=== PATIENT | female | born 1965 | race American Indian/Alaskan Native ===

== ENCOUNTER 2018-07-06 18:11 | Inpatient (IN) | payer MEDICARE, OTHER ==
--- NOTE | 2018-07-06 19:06 | ED PDOC ---
Arrival/HPI - General Time Seen by Provider: 07/06/18 19:01 Historian: Patient - History of Present Illness Narrative History of Present Illness (Text): 07/06/18 19:02 53 y/o female, pmh including dm/htn, psychiatric history of schizophrenia and taking haldol, post menopausal, nkda, c/o generalized shaking and LLE shaking for over 1 week. Pt. stated that she has over 1 week of the left lower extremity spasm, no difficulty walking or standing, has chronic tremors of the whole body for over years since the start of the the haldol which her pmd and psychiatrist awared of it but she doesn't like to take medication, no worsening or change in the severity/quality/quantity of the tremors, no fever or chills, no slurred speech, no numbness or tingling, no diarrhea, no rash, no other medical or [id number] complaints. Past Medical History - Provider Review Nursing Documentation Reviewed: Yes Family/Social History - Physician Review Nursing Documentation Reviewed: Yes Family/Social History: Unknown Family HX Allergies/Home Meds Allergies/Adverse Reactions: Allergies No Known Allergies Allergy (Verified 07/11/18 09:57) Home Medications: Home Meds Medication Instructions Recorded Confirmed Haloperidol [Haldol] 10 mg PO BID 07/07/18 07/07/18 Review of Systems - Review of Systems Constitutional: absent: Fatigue, Fevers Eyes: absent: Vision Changes ENT: absent: Hearing Changes Respiratory: absent: SOB, Cough Cardiovascular: absent: Chest Pain Gastrointestinal: absent: Abdominal Pain, Diarrhea, Nausea, Vomiting Musculoskeletal: Other (+spasm). absent: Arthralgias, Back Pain Skin: absent: Rash, Pruritis Neurological: Other (+tremors). absent: Headache, Dizziness, Focal Weakness, Gait Changes, Speech Changes, Facial Droop, Disequilibrium, Seizure Endocrine: absent: Diaphoresis Hemo/Lymphatic: absent: Adenopathy Psychiatric: absent: Anxiety, Depression, Suicidal Ideation Physical Exam Vital Signs Reviewed: Yes Temperature: Afebrile Blood Pressure: Normal Pulse: Regular Respiratory Rate: Normal Appearance: Positive for: Well-Appearing, Non-Toxic, Comfortable Pain Distress: None Mental Status: Positive for: Alert and Oriented X 3 - Systems Exam Head: Present: Atraumatic, Normocephalic Pupils: Present: PERRL Extroacular Muscles: Present: EOMI Conjunctiva: Present: Normal Mouth: Present: Moist Mucous Membranes Nose (External): Present: Atraumatic. No: Abrasion, Contusion, Laceration, Lesions, Other Nose (Internal): Present: Normal Inspection, No Active Bleeding. No: Rhinorrhea, Septal Deviation, Septal Hematoma, Epistaxis Neck: Present: Normal Range of Motion Respiratory/Chest: Present: Clear to Auscultation, Good Air Exchange. No: Respiratory Distress, Accessory Muscle Use Cardiovascular: Present: Regular Rate and Rhythm, Normal S1, S2. No: Murmurs Abdomen: No: Tenderness, Distention, Peritoneal Signs Back: Present: Normal Inspection Upper Extremity: Present: Normal Inspection. No: Cyanosis, Edema Lower Extremity: Present: Normal Inspection, NORMAL PULSES, Normal ROM, Neurovascularly Intact, Capillary Refill < 2 s, Other (Bilateral LE: no tendern ess or swelling, no spasm, no erythematous or cellulitis, FROM without limitation, sensation intact, motor 5/5, +DPPT pulses, walking with normal gait and posture, no saddling gait. ). No: Edema, CALF TENDERNESS, Lamar's Sign, Tenderness, Swelling, Deformity Neurological: Present: GCS=15, CN II-XII Intact, Speech Normal, Motor Func Grossly Intact, Normal Cerebellar Funct, Gait Normal, Memory Normal, Other (generalized tremor noted) Skin: Present: Warm, Dry, Normal Color. No: Rashes Psychiatric: Present: Alert, Oriented x 3, Normal Insight, Normal Concentration Medical Decision Making ED Course and Treatment: 07/06/18 19:11 Differential: Tardive dyskenia vs. dystonia vs. Extrapyrmaida symptoms vs. haldol side effect vs. electrolyte imbalance vs. DVT vs. unlikely neurolaptic malignant syndrome -Labs/CPK -DVT -IVF/benadryl -Observe and reassess 07/06/2018 21:19 -EKG: NSR @ 76 BPM, no ST elevation or depression, T wave inversion I/aVL/V2-V6. -LLE Venuous doppler: as per preliminary report, +DVT noted on the whole entire LLE. -CTA Chest ordered -Room air sat around 92%, CTA ordered -Labs are non significant except glucose 308 (DM, IVF ordered, no signs or symptoms of DKA) -Dimer 1332 -Troponin 0.09, no chest pain, likely PE induced, aspirin 325mg ordered -Pt. refused guaiac, stated that she has no nausea/vomiting/diarrhea/hematochezia, no rectal bleeding or black color stool. -IV heparin bolus and drip orderd for her DVT and possible PE -Pt.'s tremor resolved with the IV Benadryl 07/06/2018 21:20 Chest CTA IMPRESSION: 1. Extensive central and segmental right sided PE as described above noted. 2. The estimated RV/LV ratio equals 1.0. This indicates significant right ventricular strain. 3. Mild cardiomegaly. 4. Emphysema. 5. An 8.0 mm 9-obstructing calculus is seen in the upper left renal pole. Dictator: Hany Quiroz M.D. 07/06/18 21:39 -BNP: 1000, no signs of CHF, would need echocardiogram -Elevated BP and didn't take her medication, IV hydralazine 20mg ordered -I spoke to Dr. Urbina, discussed about the case/labs/radiology result, agreed Dr. Weems/Ward for routine consult which I ordered. -I spoke to Dr. Matamoros, ICU water pollution specialist, discussed about the case/labs/radiology result, agreed on the ICU admission due to the labs and ekg/CTA findings. 07/06/18 22:11 -Case discussed with Dr. Servin who spoke to Dr. Matamoros about this case, agreed on the ICU admission with heparin. Pt. is hemodynamically stable at this time. -Based on the literature of [email or web address] and PESI score (class I), there is no clear indication of the TPA systemically at this time and the patient is hemodynamically stable. 07/07/18 12:17 -UA show +UTI, macrobid ordered as follow up. - Critical Care Critical Care Minutes: 45 minutes Critical Care Time: Unstable Narrative Critical Care (Text): 07/06/18 21:42 Central PE with ischemia changes on the ekg with heart strain, LLE DVT, cardiac monitoring, ICU consult and admission. - RAD Interpretation Radiology Orders: -LLE Venuous doppler: as per preliminary report, +DVT noted on the whole entire LLE. -CTA Chest EXAM: CTA Chest with Intravenous Contrast for Pulmonary Embolism CLINICAL HISTORY: SOB DVT IN LOWER EXTREMITY CHEST PAIN TECHNIQUE: Axial CTA images of the chest with intravenous contrast using a pulmonary embolism protocol. Reconstructed images were created and reviewed. 516.00 mGy-cm CONTRAST: With; OMNI 350 100 ml was administered without incident. COMPARISON: None provided. FINDINGS: PULMONARY ARTERIES There is intraluminal hypodense filling defect seen in the distal main right pulmonary artery and directed with segmental branches compatible with central and segmental pulmonary embolism. The arterial branches that supply the posterior lateral and lower right lung are most affected. AORTA There is no evidence for aneurysm or dissection of the thoracic aorta. LUNGS No pneumonic consolidation seen. Scattered emphysematous centrilobular changes are seen. PLEURAL SPACES No evidence of pneumothorax. No pleural effusion. HEART There is mild cardiomegaly. No pericardial effusion. The estimated RV/LV ratio is 1.0. This indicates significant right ventricular strain. LYMPH NODES No lymphadenopathy is evident. BONES No focal osseous abnormality or acute fracture. UPPER ABDOMEN Images of the upper abdomen demonstrate an approximately 8.0 mm non-obstructing calculus in the upper left renal pole. IMPRESSION: 1. Extensive central and segmental right sided PE as described above noted. 2. The estimated RV/LV ratio equals 1.0. This indicates significant right ventricular strain. 3. Mild cardiomegaly. 4. Emphysema. 5. An 8.0 mm 9-obstructing calculus is seen in the upper left renal pole. Electronically signed on July 06, 2018 9:19:36 PM EDT by: Hany Quiroz M.D., M.B.A., Certified By [employer] Trained MRI and CT Specialist Bench Jeweler: Radiologist - PA / PLUSH BRUSHER / Resident Statement / has reviewed & agrees with the documentation as recorded. Disposition/Present on Arrival - Present on Arrival Any Indicators Present on Arrival: No History of DVT/PE: No History of Uncontrolled Diabetes: No Urinary Catheter: No History of Decub. Ulcer: No - Disposition Have Diagnosis and Disposition been Completed?: Yes Diagnosis: DVT (deep venous thrombosis), Extrapyramidal movement disorder, Pulmonary embolism, Elevated troponin Disposition: HOSPITALIZED Disposition Time: 19:12 Patient Plan: Admission, ICU Condition: GUARDED
[2018-07-06] MEDS ORDERED: Sodium Chloride 0.9% 1,000 ML IV STA (19:12)
[2018-07-06] MEDS ORDERED: DiphenhydrAMINE 50 mg/ml Inj IVP STA (19:12)
[2018-07-06] MEDS ORDERED: Heparin25000 units/250ml 1/2NS 25,000 UNITS/250 ML BAG IV PRN (20:06)
[2018-07-06 20:10] LABS: BASO # 0.03 K/mm3 (0.0-2.0); BASO % 0.3 % (0.0-3.0); EOS % 0.3 % (1.5-5.0); LYMPH # 1.4 (1.2-3.4); LYMPH % 12.8 % (22.0-35.0); MEAN CELL VOLUME 88.2 fl (80.0-105.0); MEAN CORPUSCULAR HEMOGLOBIN 29.4 pg (25.0-35.0); MEAN CORPUSCULAR HGB CONC 33.3 g/dl (31.0-37.0); MEAN PLATELET VOLUME 9.8 fl (7.0-11.0); MONO # 0.7 (0.1-0.6); MONO % 6.5 % (1.0-6.0); RBC 4.76 10^6/uL (3.5-6.1); RED CELL DISTRIBUTION WIDTH 12.8 % (11.5-14.5); WHITE BLOOD COUNT 10.7 10^3/uL (4.5-11.0)
[2018-07-06 20:20] VITALS: BMI 34.2
[2018-07-06 20:21] LABS: ALBUMIN 4.1 g/dL (3.0-4.8); ALT/SGPT 16 U/L (7-56); AST/SGOT 30 U/L (14-36); BLOOD UREA NITROGEN 15 mg/dL (7-21); CALCIUM 9.4 mg/dL (8.4-10.5); GFR NON-AFRICAN AMERICAN > 60
[2018-07-06] MEDS ORDERED: Iohexol 350 MG/100 ML VIAL ONE (20:30)
[2018-07-06 20:34] LABS: INR 1.28; PARTIAL THROMBOPLASTIN TIME 24.7 Seconds (26.9-38.3); PROTHROMBIN TIME 14.2 SECONDS (9.4-12.5)
[2018-07-06] MEDS: Heparin 25,000units in 1/2NS /250 ML BAG IV PRN (20:43)
--- NOTE | 2018-07-06 22:10 | CP.PCM.CON ---
<LamontFord Autumn - Last Filed: 07/07/18 05:26> History of Present Illness - History of Present Illness History of Present Illness: ICU Consult Note Ford Miguel PGY2 Chief Complaint: Muscle spasms in right leg HPI: Patient is a 53 F with a past medical history of hypertension and schizophrenia who presents with complaints of lower leg muscle spasms which bega n about 7 days prior. Patient states she also experienced shortness of breath for the past few weeks but said since it was only with exertion she didn't pay much attention to it. Patient denies palpitations, chest pain, nausea, vomiting, diarrhea, fevers, chills, family history of blood disorders, smoking, OCP uses since a teenager, recent long car/plane travels, smoking. She states she is physically active and is always walking around never sitting still. PMD: Does not have Psychiatrist: [place] [facility] [place] Allergies: denies Surgical hx: denies Past medical history: hypertension and schizophrenia however patient is very non compliant with her medications. [facility] in [place]. Family Hx: denies Social Hx: patient has a daughter who brought her into the hospital however lorelei loco lives alone and cares for herself. Patient does not work and is on disability. Review of Systems - Review of Systems All systems: reviewed and no additional remarkable complaints except (as mentiond in HPI) Past Patient History - Past Social History Smoking Status: Never Smoked - CARDIAC Hx Hypertension: Yes - ENDOCRINE/METABOLIC Hx Diabetes Mellitus Type 2: Yes - PSYCHIATRIC Hx Schizophrenia: Yes Hx Substance Use: No - SURGICAL HISTORY Hx Surgeries: No - ANESTHESIA Hx Anesthesia: No Hx Anesthesia Reactions: No Hx Malignant Hyperthermia: No Meds Allergies/Adverse Reactions: Allergies Allergy/AdvReac Type Severity Reaction Status Date / Time No Known Allergies Allergy Verified 07/06/18 18:56 - Medications Medications: Current Medications Heparin Sodium/Sodium Chloride (Heparin 40964 Units/250ml 1/2 Normal Saline) 25,000 units in 250 mls @ 17.309 mls/hr IV .[id number] PRN; Protocol PRN Reason: ADJUST RATE PER PROTOCOL Last Admin: 07/06/18 20:43 Dose: 17.309 mls/hr Physical Exam - Head Exam Head Exam: ATRAUMATIC, NORMAL INSPECTION, NORMOCEPHALIC - Eye Exam Eye Exam: EOMI, Normal appearance - ENT Exam ENT Exam: Mucous Membranes Moist - Respiratory Exam Respiratory Exam: Clear to Auscultation Bilateral, NORMAL BREATHING PATTERN. absent: Rhonchi, Wheezes - Cardiovascular Exam Cardiovascular Exam: REGULAR RHYTHM, +S1, +S2 - GI/Abdominal Exam GI & Abdominal Exam: Normal Bowel Sounds, Soft - Extremities Exam Extremities exam: Positive for: pedal edema (left lower leg), pedal pulses present. Negative for: calf tenderness, normal inspection - Back Exam Back exam: NORMAL INSPECTION - Neurological Exam Neurological exam: Alert, CN II-XII Intact, Oriented x3 - Psychiatric Exam Psychiatric exam: Normal Affect, Normal Mood - Skin Skin Exam: Normal Color, Warm Results - Vital Signs Recent Vital Signs: Last Vital Signs Temp 98.5 F 07/06/18 21:21 Pulse 83 07/06/18 21:50 Resp 22 07/06/18 21:21 BP 181/106 H 07/06/18 21:50 Pulse Ox 99 07/06/18 21:21 - Labs Result Diagrams: 07/06/18 19:30 07/06/18 19:30 Labs: Laboratory Results - last 24 hr 07/06/18 07/06/18 07/06/18 19:30 19:30 19:30 WBC 10.7 RBC 4.76 Hgb 14.0 Hct 42.0 MCV 88.2 MCH 29.4 MCHC 33.3 RDW 12.8 Plt Count 392 MPV 9.8 Neut % (Auto) 80.1 H Lymph % (Auto) 12.8 L [place] % (Auto) 6.5 H Eos % (Auto) 0.3 L Baso % (Auto) 0.3 Lymph # (Auto) 1.4 [place] # (Auto) 0.7 H Eos # (Auto) 0.0 Baso # (Auto) 0.03 Absolute Neuts (auto) 8.58 H PT INR APTT D-Dimer, Quantitative Sodium 139 Potassium 4.1 Chloride 101 Carbon Dioxide 25 Anion Gap 17 BUN 15 Creatinine 0.9 Est GFR ( Amer) > 60 Est GFR (Non-Af Amer) > 60 Random Glucose 308 H* Calcium 9.4 Magnesium 1.8 Total Bilirubin 0.9 AST 30 ALT 16 Alkaline Phosphatase 82 Total Creatine Kinase 81 Troponin I 0.09 NT-Pro-B Natriuret Pep Total Protein 8.2 Albumin 4.1 Globulin 4.0 Albumin/Globulin Ratio 1.0 L 07/06/18 07/06/18 19:30 20:11 WBC RBC Hgb Hct MCV MCH MCHC RDW Plt Count MPV Neut % (Auto) Lymph % (Auto) [place] % (Auto) Eos % (Auto) Baso % (Auto) Lymph # (Auto) [place] # (Auto) Eos # (Auto) Baso # (Auto) Absolute Neuts (auto) PT 14.2 H INR 1.28 APTT 24.7 L D-Dimer, Quantitative 1332 H Sodium Potassium Chloride Carbon Dioxide Anion Gap BUN Creatinine Est GFR ( Amer) Est GFR (Non-Af Amer) Random Glucose Calcium Magnesium Total Bilirubin AST ALT Alkaline Phosphatase Total Creatine Kinase Troponin I NT-Pro-B Natriuret Pep 1070 H Total Protein Albumin Globulin Albumin/Globulin Ratio Assessment & Plan - Assessment and Plan (Free Text) Assessment: 53 F with a history of hypertension and shizophrenia presenting with lower leg muscle cramping found to have a DVT and pulmonary embolism Plan: Neurologic/psych -AAO x3 -Verify medications with [facility]'s [facility] ([facility] [address]) and resume psych meds Cadiovascular -Lower Extremity DVT and Central Pulmonary embolism with RV strain -Maintain MAP >65 -Avoid hypotension -Continue with heparin drip and aspirin -Continue to trend troponins, first troponin 0.09 -Continue with serial EKGs -2D echo ordered -Lipid panel, TSH -Cardiology on Consult Hematological -Lower Extremity DVT and Central Pulmonary embolism with RV strain -Continue with Heparin drip -Consider Coagulopathy workup during hospital stay -PTT Pulmonary -Lower Extremity DVT and Central Pulmonary embolism with RV strain -Maintain O2 sat >95% -Continue with Heparin drip -IR consulted Endocrine -History of DM for which patient does not take medications -HgA1C ordered -Insulin SCC -continues with fingersticks qACHS -Maintain euglycemia and normothermia Renal -Maintain euvolemia -Replete electrolytes as needed <Shea Matamoros - Last Filed: 07/07/18 06:55> Meds - Medications Medications: Current Medications Aspirin (Ecotrin) 81 mg PO DAILY EMILIAAN Heparin Sodium/Sodium Chloride (Heparin 03897 Units/250ml 1/2 Normal Saline) 25,000 units in 250 mls @ 17.309 mls/hr IV .[id number] PRN; Protocol PRN Reason: ADJUST RATE PER PROTOCOL Last Titration: 07/07/18 03:00 Dose: 15 units/kg/hr, 14.424 mls/hr Insulin Human Regular (Humulin R Med) 0 units SC ACHS EMILIANA; Protocol Results - Vital Signs Recent Vital Signs: Last Vital Signs Temp 98.3 F 07/06/18 23:19 Pulse 79 07/07/18 04:00 Resp 16 07/06/18 23:23 BP 171/86 H 07/06/18 23:23 Pulse Ox 99 07/06/18 23:23 - Labs Result Diagrams: 07/07/18 05:00 07/07/18 05:00 Labs: Laboratory Results - last 24 hr 07/06/18 07/06/18 07/06/18 19:30 19:30 19:30 WBC 10.7 RBC 4.76 Hgb 14.0 Hct 42.0 MCV 88.2 MCH 29.4 MCHC 33.3 RDW 12.8 Plt Count 392 MPV 9.8 Neut % (Auto) 80.1 H Lymph % (Auto) 12.8 L [place] % (Auto) 6.5 H Eos % (Auto) 0.3 L Baso % (Auto) 0.3 Lymph # (Auto) 1.4 [place] # (Auto) 0.7 H Eos # (Auto) 0.0 Baso # (Auto) 0.03 Absolute Neuts (auto) 8.58 H PT INR APTT D-Dimer, Quantitative Sodium 139 Potassium 4.1 Chloride 101 Carbon Dioxide 25 Anion Gap 17 BUN 15 Creatinine 0.9 Est GFR ( Amer) > 60 Est GFR (Non-Af Amer) > 60 Random Glucose 308 H* Calcium 9.4 Phosphorus Magnesium 1.8 Total Bilirubin 0.9 AST 30 ALT 16 Alkaline Phosphatase 82 Total Creatine Kinase 81 Troponin I 0.09 NT-Pro-B Natriuret Pep Total Protein 8.2 Albumin 4.1 Globulin 4.0 Albumin/Globulin Ratio 1.0 L Triglycerides Cholesterol LDL Cholesterol Direct HDL Cholesterol Urine Color Urine Appearance Urine pH Ur Specific [place] Urine Protein Urine Glucose (UA) Urine Ketones Urine Blood Urine Nitrate Urine Bilirubin Urine Urobilinogen Ur Leukocyte Esterase Urine RBC Urine WBC Ur Epithelial Cells Urine Bacteria Urine Opiates Screen Urine Methadone Screen Ur Barbiturates Screen Ur Phencyclidine Scrn Ur Amphetamines Screen U Benzodiazepines Scrn U Oth Cocaine Metabols U Cannabinoids Screen 07/06/18 07/06/18 07/06/18 19:30 20:11 21:21 WBC RBC Hgb Hct MCV MCH MCHC RDW Plt Count MPV Neut % (Auto) Lymph % (Auto) [place] % (Auto) Eos % (Auto) Baso % (Auto) Lymph # (Auto) [place] # (Auto) Eos # (Auto) Baso # (Auto) Absolute Neuts (auto) PT 14.2 H INR 1.28 APTT 24.7 L D-Dimer, Quantitative 1332 H Sodium Potassium Chloride Carbon Dioxide Anion Gap BUN Creatinine Est GFR ( Amer) Est GFR (Non-Af Amer) Random Glucose Calcium Phosphorus Magnesium 1.9 Total Bilirubin AST ALT Alkaline Phosphatase Total Creatine Kinase Troponin I NT-Pro-B Natriuret Pep 1070 H Total Protein Albumin Globulin Albumin/Globulin Ratio Triglycerides Cholesterol LDL Cholesterol Direct HDL Cholesterol Urine Color Urine Appearance Urine pH Ur Specific [place] Urine Protein Urine Glucose (UA) Urine Ketones Urine Blood Urine Nitrate Urine Bilirubin Urine Urobilinogen Ur Leukocyte Esterase Urine RBC Urine WBC Ur Epithelial Cells Urine Bacteria Urine Opiates Screen Urine Methadone Screen Ur Barbiturates Screen Ur Phencyclidine Scrn Ur Amphetamines Screen U Benzodiazepines Scrn U Oth Cocaine Metabols U Cannabinoids Screen 07/07/18 07/07/18 07/07/18 00:10 00:10 02:00 WBC RBC Hgb Hct MCV MCH MCHC RDW Plt Count MPV Neut % (Auto) Lymph % (Auto) [place] % (Auto) Eos % (Auto) Baso % (Auto) Lymph # (Auto) [place] # (Auto) Eos # (Auto) Baso # (Auto) Absolute Neuts (auto) PT INR APTT D-Dimer, Quantitative Sodium Potassium Chloride Carbon Dioxide Anion Gap BUN Creatinine Est GFR ( Amer) Est GFR (Non-Af Amer) Random Glucose Calcium Phosphorus Magnesium Total Bilirubin AST ALT Alkaline Phosphatase Total Creatine Kinase Troponin I 0.12 D NT-Pro-B Natriuret Pep Total Protein Albumin Globulin Albumin/Globulin Ratio Triglycerides Cholesterol LDL Cholesterol Direct HDL Cholesterol Urine Color Yellow Urine Appearance Sl cloudy Urine pH 6.0 Ur Specific [place] <= 1.005 Urine Protein Negative Urine Glucose (UA) 250 H Urine Ketones Trace H Urine Blood Negative Urine Nitrate Positive H Urine Bilirubin Negative Urine Urobilinogen 1.0 H Ur Leukocyte Esterase Small H Urine RBC 0 - 2 Urine WBC 5 - 10 H Ur Epithelial Cells 4 - 5 Urine Bacteria Many Urine Opiates Screen Negative Urine Methadone Screen Negative Ur Barbiturates Screen Negative Ur Phencyclidine Scrn Negative Ur Amphetamines Screen Negative U Benzodiazepines Scrn Negative U Oth Cocaine Metabols Negative U Cannabinoids Screen Negative 07/07/18 07/07/18 07/07/18 02:00 05:00 05:00 WBC 7.6 D RBC 4.46 Hgb 12.9 Hct 39.8 MCV 89.2 MCH 28.9 MCHC 32.4 RDW 12.9 Plt Count 319 MPV 9.0 Neut % (Auto) 52.7 Lymph % (Auto) 36.8 H [place] % (Auto) 7.6 H Eos % (Auto) 2.4 Baso % (Auto) 0.5 Lymph # (Auto) 2.8 [place] # (Auto) 0.6 Eos # (Auto) 0.2 Baso # (Auto) 0.04 Absolute Neuts (auto) 4.02 PT INR APTT 193.7 H* D-Dimer, Quantitative Sodium 140 Potassium 3.4 L Chloride 106 Carbon Dioxide 27 Anion Gap 11 BUN 13 Creatinine 0.8 Est GFR ( Amer) > 60 Est GFR (Non-Af Amer) > 60 Random Glucose 296 H Calcium 8.6 Phosphorus 3.3 Magnesium Total Bilirubin 0.5 AST 17 ALT 15 Alkaline Phosphatase 75 Total Creatine Kinase Troponin I NT-Pro-B Natriuret Pep Total Protein 6.8 Albumin 3.5 Globulin 3.4 Albumin/Globulin Ratio 1.0 L Triglycerides 107 Cholesterol 162 LDL Cholesterol Direct 110 HDL Cholesterol 32 Urine Color Urine Appearance Urine pH Ur Specific [place] Urine Protein Urine Glucose (UA) Urine Ketones Urine Blood Urine Nitrate Urine Bilirubin Urine Urobilinogen Ur Leukocyte Esterase Urine RBC Urine WBC Ur Epithelial Cells Urine Bacteria Urine Opiates Screen Urine Methadone Screen Ur Barbiturates Screen Ur Phencyclidine Scrn Ur Amphetamines Screen U Benzodiazepines Scrn U Oth Cocaine Metabols U Cannabinoids Screen Attending/Attestation - Attestation I have personally seen and examined this patient.: Yes I have fully participated in the care of the patient.: Yes I have reviewed all pertinent clinical information: Yes Notes (Text): 07/07/18 06:55 Seen and examined. Discussed with resident. A&P as above.
[2018-07-07 00:37] LABS: URINE BILIRUBIN NEGATIVE (NEGATIVE); URINE BLOOD NEGATIVE (NEGATIVE); URINE GLUCOSE (UA) 250 mg/dL (NEGATIVE); URINE LEUKOCYTE ESTERASE SMALL Leu/uL (NEGATIVE); URINE PROTEIN NEGATIVE mg/dL (<30 mg/dL)
[2018-07-07 00:41] LABS: URINE COLOR YELLOW (YELLOW)
[2018-07-07 00:42] LABS: URINE APPEARANCE SL CLOUDY (CLEAR)
[2018-07-07 00:44] LABS: BARBITURATES, UR NEGATIVE (NEGATIVE); BENZODIAZEPINES, UR NEGATIVE (NEGATIVE); OPIATES, UR NEGATIVE (NEGATIVE); PHENCYCLIDINE, UR NEGATIVE (NEGATIVE)
[2018-07-07 00:53] LABS: URINE RBC 0 - 2 /hpf (0-2)
[2018-07-07 00:54] LABS: URINE BACTERIA MANY /hpf
[2018-07-07 05:51] LABS: ALBUMIN 3.5 g/dL (3.0-4.8); ALT/SGPT 15 U/L (7-56); AST/SGOT 17 U/L (14-36); BASO # 0.04 K/mm3 (0.0-2.0); BASO % 0.5 % (0.0-3.0); BLOOD UREA NITROGEN 13 mg/dL (7-21); CALCIUM 8.6 mg/dL (8.4-10.5); EOS # 0.2 (0.0-0.7); EOS % 2.4 % (1.5-5.0); GFR NON-AFRICAN AMERICAN > 60; HDL CHOLESTEROL 32 mg/dL (29-60); HEMOGLOBIN 12.9 g/dL (12.0-16.0); LYMPH # 2.8 (1.2-3.4); LYMPH % 36.8 % (22.0-35.0); MEAN CELL VOLUME 89.2 fl (80.0-105.0); MEAN CORPUSCULAR HEMOGLOBIN 28.9 pg (25.0-35.0); MEAN CORPUSCULAR HGB CONC 32.4 g/dl (31.0-37.0); MONO # 0.6 (0.1-0.6); MONO % 7.6 % (1.0-6.0); RBC 4.46 10^6/uL (3.5-6.1); RED CELL DISTRIBUTION WIDTH 12.9 % (11.5-14.5); WHITE BLOOD COUNT 7.6 10^3/uL (4.5-11.0)
[2018-07-07 05:58] LABS: LDL CHOLESTEROL 110 mg/dL (0-129)
[2018-07-07] MEDS ORDERED: Potassium Chloride 20 mEq ER Tab PO STA (06:57)
--- NOTE | 2018-07-07 07:24 | CP.CCUPN ---
<Agusto Fam - Last Filed: 07/07/18 13:29> CCU Subjective - Physician Review Subjective (Free Text): Agusto Fam PGY-1 Critical Care Progress Note Patient seen and evaluated at bedside. No acute events reported overnight. Patient sitting up in bed, hemodynamically stable on nasal cannula. Patient denies current chest pain, palpitations, shortness of breath, and headaches. CCU Objective - Vital Signs / Intake & Output Vital Signs (Last 4 hours): Vital Signs Pulse 07/07/18 04:00 79 Intake and Output (Last 8hrs): Intake & Output 07/06/18 07/07/18 07/07/18 22:59 06:59 14:59 Intake Total 223 Output Total 500 Balance -277 Weight 96.162 kg 97.522 kg Intake: IV 223 Right Hand 121 Output: Urine 500 Urine, Voided 500 Other: Voiding Method Bedpan # Voids Urine, Voided 3 - Physical Exam Head: Positive for: Atraumatic, Normocephalic Pupils: Positive for: PERRL Extroacular Muscles: Positive for: EOMI Conjunctiva: Positive for: Normal Mouth: Positive for: Moist Mucous Membranes Nose (External): Positive for: Atraumatic. Negative for: Abrasion, Contusion, Laceration, Lesions, Other Nose (Internal): Positive for: Normal Inspection, No Active Bleeding. Negative for: Rhinorrhea, Septal Deviation, Septal Hematoma, Epistaxis Neck: Positive for: Normal Range of Motion Respiratory/Chest: Positive for: Clear to Auscultation, Good Air Exchange. Negative for: Respiratory Distress, Accessory Muscle Use Cardiovascular: Positive for: Regular Rate and Rhythm, Normal S1, S2. Negative for: Murmurs Abdomen: Negative for: Tenderness, Distention, Peritoneal Signs Back: Positive for: Normal Inspection Upper Extremity: Positive for: Normal Inspection. Negative for: Cyanosis, Edema Lower Extremity: Positive for: Normal Inspection, NORMAL PULSES, Normal ROM, Neurovascularly Intact, Capillary Refill < 2 s, Other (Bilateral LE: no tenderness or swelling, no spasm, no erythematous or cellulitis, FROM without limitation, sensation intact, motor 5/5, +DPPT pulses, walking with normal gait and posture, no saddling gait. ). Negative for: Edema, CALF TENDERNESS, Lamar's Sign, Tenderness, Swelling, Deformity Neurological: Positive for: GCS=15, CN II-XII Intact, Speech Normal, Motor Func Grossly Intact, Normal Cerebellar Funct, Gait Normal, Memory Normal, Other (Full body slight tremor noted) Skin: Positive for: Warm, Dry, Normal Color. Negative for: Rashes Psychiatric: Positive for: Alert, Oriented x 3, Normal Insight, Normal Concentration - Medications Active Medications: Active Medications Generic Name Dose Route Start Last Admin Trade Name Freq PRN Reason Stop Dose Admin Aspirin 81 mg 07/07/18 10:00 Ecotrin PO DAILY [facility] Heparin Sodium/Sodium Chloride 25,000 units in 250 mls @ 17.309 mls/hr 07/06/18 20:28 07/07/18 03:00 Heparin 90331 Units/250ml 1/2 Normal Saline IV 15 units/kg/hr .[id number] PRN 14.424 mls/hr ADJUST RATE PER PROTOCOL Titration Protocol 18 UNITS/KG/HR Insulin Human Regular 0 units 07/07/18 07:30 Humulin [address] Med [facility] Protocol - Patient Studies Lab Studies: Lab Studies 07/07/18 07/07/18 07/07/18 Range/Units 05:00 05:00 02:00 WBC 7.6 D (4.5-11.0) 10^3/uL RBC 4.46 (3.5-6.1) 10^6/uL Hgb 12.9 (12.0-16.0) g/dL Hct 39.8 (36.0-48.0) % MCV 89.2 (80.0-105.0) fl MCH 28.9 (25.0-35.0) pg MCHC 32.4 (31.0-37.0) g/dl RDW 12.9 (11.5-14.5) % Plt Count 319 (120.0-450.0) 10^3/uL MPV 9.0 (7.0-11.0) fl Neut % (Auto) 52.7 (50.0-68.0) % Lymph % (Auto) 36.8 H (22.0-35.0) % Harmon % (Auto) 7.6 H (1.0-6.0) % Eos % (Auto) 2.4 (1.5-5.0) % Baso % (Auto) 0.5 (0.0-3.0) % Lymph # (Auto) 2.8 (1.2-3.4) Harmon # (Auto) 0.6 (0.1-0.6) Eos # (Auto) 0.2 (0.0-0.7) Baso # (Auto) 0.04 (0.0-2.0) K/mm3 Absolute Neuts (auto) 4.02 (1.4-6.5) PT (9.4-12.5) SECONDS INR APTT 193.7 H* (26.9-38.3) Seconds D-Dimer, Quantitative (0-243) ng/mlDDU Sodium 140 (132-148) mmol/L Potassium 3.4 L (3.6-5.0) mmol/L Chloride 106 (98-107) mmol/L Carbon Dioxide 27 (21-33) mmol/L Anion Gap 11 (10-20) BUN 13 (7-21) mg/dL Creatinine 0.8 (0.7-1.2) mg/dl Est GFR ( Amer) > 60 Est GFR (Non-Af Amer) > 60 Random Glucose 296 H (70-110) mg/dL Calcium 8.6 (8.4-10.5) mg/dL Phosphorus 3.3 (2.5-4.5) mg/dL Magnesium (1.7-2.2) mg/dL Total Bilirubin 0.5 (0.2-1.3) mg/dL AST 17 (14-36) U/L ALT 15 (7-56) U/L Alkaline Phosphatase 75 (38-126) U/L Total Creatine Kinase (35-230) U/L Troponin I ng/mL NT-Pro-B Natriuret Pep (0-450) pg/mL Total Protein 6.8 (5.8-8.3) g/dL Albumin 3.5 (3.0-4.8) g/dL Globulin 3.4 gm/dL Albumin/Globulin Ratio 1.0 L (1.1-1.8) Triglycerides 107 (35-160) mg/dL Cholesterol 162 (130-200) mg/dL LDL Cholesterol Direct 110 (0-129) mg/dL HDL Cholesterol 32 (29-60) mg/dL Urine Color (YELLOW) Urine Appearance (CLEAR) Urine pH (4.7-8.0) Ur Specific Hulbert (1.005-1.035) Urine Protein (<30 mg/dL) mg/dL Urine Glucose (UA) (NEGATIVE) mg/dL Urine Ketones (NEGATIVE) mg/dL Urine Blood (NEGATIVE) Urine Nitrate (NEGATIVE) Urine Bilirubin (NEGATIVE) Urine Urobilinogen (<1 E.U./dL) E.U./dL Ur Leukocyte Esterase (NEGATIVE) Myles/uL Urine RBC (0-2) /hpf Urine WBC (0-6) /hpf Ur Epithelial Cells (0-5) /hpf Urine Bacteria (NONE) /hpf Urine Opiates Screen (NEGATIVE) Urine Methadone Screen (NEGATIVE) Ur Barbiturates Screen (NEGATIVE) Ur Phencyclidine Scrn (NEGATIVE) Ur Amphetamines Screen (NEGATIVE) U Benzodiazepines Scrn (NEGATIVE) U Oth Cocaine Metabols (NEGATIVE) U Cannabinoids Screen (NEGATIVE) 07/07/18 07/07/18 07/07/18 Range/Units 02:00 00:10 00:10 WBC (4.5-11.0) 10^3/uL RBC (3.5-6.1) 10^6/uL Hgb (12.0-16.0) g/dL Hct (36.0-48.0) % MCV (80.0-105.0) fl MCH (25.0-35.0) pg MCHC (31.0-37.0) g/dl RDW (11.5-14.5) % Plt Count (120.0-450.0) 10^3/uL MPV (7.0-11.0) fl Neut % (Auto) (50.0-68.0) % Lymph % (Auto) (22.0-35.0) % Harmon % (Auto) (1.0-6.0) % Eos % (Auto) (1.5-5.0) % Baso % (Auto) (0.0-3.0) % Lymph # (Auto) (1.2-3.4) Harmon # (Auto) (0.1-0.6) Eos # (Auto) (0.0-0.7) Baso # (Auto) (0.0-2.0) K/mm3 Absolute Neuts (auto) (1.4-6.5) PT (9.4-12.5) SECONDS INR APTT (26.9-38.3) Seconds D-Dimer, Quantitative (0-243) ng/mlDDU Sodium (132-148) mmol/L Potassium (3.6-5.0) mmol/L Chloride (98-107) mmol/L Carbon Dioxide (21-33) mmol/L Anion Gap (10-20) BUN (7-21) mg/dL Creatinine (0.7-1.2) mg/dl Est GFR ( Amer) Est GFR (Non-Af Amer) Random Glucose (70-110) mg/dL Calcium (8.4-10.5) mg/dL Phosphorus (2.5-4.5) mg/dL Magnesium (1.7-2.2) mg/dL Total Bilirubin (0.2-1.3) mg/dL AST (14-36) U/L ALT (7-56) U/L Alkaline Phosphatase (38-126) U/L Total Creatine Kinase (35-230) U/L Troponin I 0.12 D ng/mL NT-Pro-B Natriuret Pep (0-450) pg/mL Total Protein (5.8-8.3) g/dL Albumin (3.0-4.8) g/dL Globulin gm/dL Albumin/Globulin Ratio (1.1-1.8) Triglycerides (35-160) mg/dL Cholesterol (130-200) mg/dL LDL Cholesterol Direct (0-129) mg/dL HDL Cholesterol (29-60) mg/dL Urine Color Yellow (YELLOW) Urine Appearance Sl cloudy (CLEAR) Urine pH 6.0 (4.7-8.0) Ur Specific Hulbert <= 1.005 (1.005-1.035) Urine Protein Negative (<30 mg/dL) mg/dL Urine Glucose (UA) 250 H (NEGATIVE) mg/dL Urine Ketones Trace H (NEGATIVE) mg/dL Urine Blood Negative (NEGATIVE) Urine Nitrate Positive H (NEGATIVE) Urine Bilirubin Negative (NEGATIVE) Urine Urobilinogen 1.0 H (<1 E.U./dL) E.U./dL Ur Leukocyte Esterase Small H (NEGATIVE) Myles/uL Urine RBC 0 - 2 (0-2) /hpf Urine WBC 5 - 10 H (0-6) /hpf Ur Epithelial Cells 4 - 5 (0-5) /hpf Urine Bacteria Many (NONE) /hpf Urine Opiates Screen Negative (NEGATIVE) Urine Methadone Screen Negative (NEGATIVE) Ur Barbiturates Screen Negative (NEGATIVE) Ur Phencyclidine Scrn Negative (NEGATIVE) Ur Amphetamines Screen Negative (NEGATIVE) U Benzodiazepines Scrn Negative (NEGATIVE) U Oth Cocaine Metabols Negative (NEGATIVE) U Cannabinoids Screen Negative (NEGATIVE) 07/06/18 07/06/18 07/06/18 Range/Units 21:21 20:11 19:30 WBC (4.5-11.0) 10^3/uL RBC (3.5-6.1) 10^6/uL Hgb (12.0-16.0) g/dL Hct (36.0-48.0) % MCV (80.0-105.0) fl MCH (25.0-35.0) pg MCHC (31.0-37.0) g/dl RDW (11.5-14.5) % Plt Count (120.0-450.0) 10^3/uL MPV (7.0-11.0) fl Neut % (Auto) (50.0-68.0) % Lymph % (Auto) (22.0-35.0) % Harmon % (Auto) (1.0-6.0) % Eos % (Auto) (1.5-5.0) % Baso % (Auto) (0.0-3.0) % Lymph # (Auto) (1.2-3.4) Harmon # (Auto) (0.1-0.6) Eos # (Auto) (0.0-0.7) Baso # (Auto) (0.0-2.0) K/mm3 Absolute Neuts (auto) (1.4-6.5) PT 14.2 H (9.4-12.5) SECONDS INR 1.28 APTT 24.7 L (26.9-38.3) Seconds D-Dimer, Quantitative 1332 H (0-243) ng/mlDDU Sodium (132-148) mmol/L Potassium (3.6-5.0) mmol/L Chloride (98-107) mmol/L Carbon Dioxide (21-33) mmol/L Anion Gap (10-20) BUN (7-21) mg/dL Creatinine (0.7-1.2) mg/dl Est GFR ( Amer) Est GFR (Non-Af Amer) Random Glucose (70-110) mg/dL Calcium (8.4-10.5) mg/dL Phosphorus (2.5-4.5) mg/dL Magnesium 1.9 (1.7-2.2) mg/dL Total Bilirubin (0.2-1.3) mg/dL AST (14-36) U/L ALT (7-56) U/L Alkaline Phosphatase (38-126) U/L Total Creatine Kinase (35-230) U/L Troponin I ng/mL NT-Pro-B Natriuret Pep 1070 H (0-450) pg/mL Total Protein (5.8-8.3) g/dL Albumin (3.0-4.8) g/dL Globulin gm/dL Albumin/Globulin Ratio (1.1-1.8) Triglycerides (35-160) mg/dL Cholesterol (130-200) mg/dL LDL Cholesterol Direct (0-129) mg/dL HDL Cholesterol (29-60) mg/dL Urine Color (YELLOW) Urine Appearance (CLEAR) Urine pH (4.7-8.0) Ur Specific Hulbert (1.005-1.035) Urine Protein (<30 mg/dL) mg/dL Urine Glucose (UA) (NEGATIVE) mg/dL Urine Ketones (NEGATIVE) mg/dL Urine Blood (NEGATIVE) Urine Nitrate (NEGATIVE) Urine Bilirubin (NEGATIVE) Urine Urobilinogen (<1 E.U./dL) E.U./dL Ur Leukocyte Esterase (NEGATIVE) Myles/uL Urine RBC (0-2) /hpf Urine WBC (0-6) /hpf Ur Epithelial Cells (0-5) /hpf Urine Bacteria (NONE) /hpf Urine Opiates Screen (NEGATIVE) Urine Methadone Screen (NEGATIVE) Ur Barbiturates Screen (NEGATIVE) Ur Phencyclidine Scrn (NEGATIVE) Ur Amphetamines Screen (NEGATIVE) U Benzodiazepines Scrn (NEGATIVE) U Oth Cocaine Metabols (NEGATIVE) U Cannabinoids Screen (NEGATIVE) 07/06/18 07/06/18 07/06/18 Range/Units 19:30 19:30 19:30 WBC 10.7 (4.5-11.0) 10^3/uL RBC 4.76 (3.5-6.1) 10^6/uL Hgb 14.0 (12.0-16.0) g/dL Hct 42.0 (36.0-48.0) % MCV 88.2 (80.0-105.0) fl MCH 29.4 (25.0-35.0) pg MCHC 33.3 (31.0-37.0) g/dl RDW 12.8 (11.5-14.5) % Plt Count 392 (120.0-450.0) 10^3/uL MPV 9.8 (7.0-11.0) fl Neut % (Auto) 80.1 H (50.0-68.0) % Lymph % (Auto) 12.8 L (22.0-35.0) % Harmon % (Auto) 6.5 H (1.0-6.0) % Eos % (Auto) 0.3 L (1.5-5.0) % Baso % (Auto) 0.3 (0.0-3.0) % Lymph # (Auto) 1.4 (1.2-3.4) Harmon # (Auto) 0.7 H (0.1-0.6) Eos # (Auto) 0.0 (0.0-0.7) Baso # (Auto) 0.03 (0.0-2.0) K/mm3 Absolute Neuts (auto) 8.58 H (1.4-6.5) PT (9.4-12.5) SECONDS INR APTT (26.9-38.3) Seconds D-Dimer, Quantitative (0-243) ng/mlDDU Sodium 139 (132-148) mmol/L Potassium 4.1 (3.6-5.0) mmol/L Chloride 101 (98-107) mmol/L Carbon Dioxide 25 (21-33) mmol/L Anion Gap 17 (10-20) BUN 15 (7-21) mg/dL Creatinine 0.9 (0.7-1.2) mg/dl Est GFR ( Amer) > 60 Est GFR (Non-Af Amer) > 60 Random Glucose 308 H* (70-110) mg/dL Calcium 9.4 (8.4-10.5) mg/dL Phosphorus (2.5-4.5) mg/dL Magnesium 1.8 (1.7-2.2) mg/dL Total Bilirubin 0.9 (0.2-1.3) mg/dL AST 30 (14-36) U/L ALT 16 (7-56) U/L Alkaline Phosphatase 82 (38-126) U/L Total Creatine Kinase 81 (35-230) U/L Troponin I 0.09 ng/mL NT-Pro-B Natriuret Pep (0-450) pg/mL Total Protein 8.2 (5.8-8.3) g/dL Albumin 4.1 (3.0-4.8) g/dL Globulin 4.0 gm/dL Albumin/Globulin Ratio 1.0 L (1.1-1.8) Triglycerides (35-160) mg/dL Cholesterol (130-200) mg/dL LDL Cholesterol Direct (0-129) mg/dL HDL Cholesterol (29-60) mg/dL Urine Color (YELLOW) Urine Appearance (CLEAR) Urine pH (4.7-8.0) Ur Specific Hulbert (1.005-1.035) Urine Protein (<30 mg/dL) mg/dL Urine Glucose (UA) (NEGATIVE) mg/dL Urine Ketones (NEGATIVE) mg/dL Urine Blood (NEGATIVE) Urine Nitrate (NEGATIVE) Urine Bilirubin (NEGATIVE) Urine Urobilinogen (<1 E.U./dL) E.U./dL Ur Leukocyte Esterase (NEGATIVE) Myles/uL Urine RBC (0-2) /hpf Urine WBC (0-6) /hpf Ur Epithelial Cells (0-5) /hpf Urine Bacteria (NONE) /hpf Urine Opiates Screen (NEGATIVE) Urine Methadone Screen (NEGATIVE) Ur Barbiturates Screen (NEGATIVE) Ur Phencyclidine Scrn (NEGATIVE) Ur Amphetamines Screen (NEGATIVE) U Benzodiazepines Scrn (NEGATIVE) U Oth Cocaine Metabols (NEGATIVE) U Cannabinoids Screen (NEGATIVE) Laboratory Results - last 24 hr 07/06/18 07/06/18 07/06/18 19:30 19:30 19:30 WBC 10.7 RBC 4.76 Hgb 14.0 Hct 42.0 MCV 88.2 MCH 29.4 MCHC 33.3 RDW 12.8 Plt Count 392 MPV 9.8 Neut % (Auto) 80.1 H Lymph % (Auto) 12.8 L Harmon % (Auto) 6.5 H Eos % (Auto) 0.3 L Baso % (Auto) 0.3 Lymph # (Auto) 1.4 Harmon # (Auto) 0.7 H Eos # (Auto) 0.0 Baso # (Auto) 0.03 Absolute Neuts (auto) 8.58 H PT INR APTT D-Dimer, Quantitative Sodium 139 Potassium 4.1 Chloride 101 Carbon Dioxide 25 Anion Gap 17 BUN 15 Creatinine 0.9 Est GFR ( Amer) > 60 Est GFR (Non-Af Amer) > 60 Random Glucose 308 H* Calcium 9.4 Phosphorus Magnesium 1.8 Total Bilirubin 0.9 AST 30 ALT 16 Alkaline Phosphatase 82 Total Creatine Kinase 81 Troponin I 0.09 NT-Pro-B Natriuret Pep Total Protein 8.2 Albumin 4.1 Globulin 4.0 Albumin/Globulin Ratio 1.0 L Triglycerides Cholesterol LDL Cholesterol Direct HDL Cholesterol Urine Color Urine Appearance Urine pH Ur Specific Hulbert Urine Protein Urine Glucose (UA) Urine Ketones Urine Blood Urine Nitrate Urine Bilirubin Urine Urobilinogen Ur Leukocyte Esterase Urine RBC Urine WBC Ur Epithelial Cells Urine Bacteria Urine Opiates Screen Urine Methadone Screen Ur Barbiturates Screen Ur Phencyclidine Scrn Ur Amphetamines Screen U Benzodiazepines Scrn U Oth Cocaine Metabols U Cannabinoids Screen 07/06/18 07/06/18 07/06/18 19:30 20:11 21:21 WBC RBC Hgb Hct MCV MCH MCHC RDW Plt Count MPV Neut % (Auto) Lymph % (Auto) Harmon % (Auto) Eos % (Auto) Baso % (Auto) Lymph # (Auto) Harmon # (Auto) Eos # (Auto) Baso # (Auto) Absolute Neuts (auto) PT 14.2 H INR 1.28 APTT 24.7 L D-Dimer, Quantitative 1332 H Sodium Potassium Chloride Carbon Dioxide Anion Gap BUN Creatinine Est GFR ( Amer) Est GFR (Non-Af Amer) Random Glucose Calcium Phosphorus Magnesium 1.9 Total Bilirubin AST ALT Alkaline Phosphatase Total Creatine Kinase Troponin I NT-Pro-B Natriuret Pep 1070 H Total Protein Albumin Globulin Albumin/Globulin Ratio Triglycerides Cholesterol LDL Cholesterol Direct HDL Cholesterol Urine Color Urine Appearance Urine pH Ur Specific Hulbert Urine Protein Urine Glucose (UA) Urine Ketones Urine Blood Urine Nitrate Urine Bilirubin Urine Urobilinogen Ur Leukocyte Esterase Urine RBC Urine WBC Ur Epithelial Cells Urine Bacteria Urine Opiates Screen Urine Methadone Screen Ur Barbiturates Screen Ur Phencyclidine Scrn Ur Amphetamines Screen U Benzodiazepines Scrn U Oth Cocaine Metabols U Cannabinoids Screen 07/07/18 07/07/18 07/07/18 00:10 00:10 02:00 WBC RBC Hgb Hct MCV MCH MCHC RDW Plt Count MPV Neut % (Auto) Lymph % (Auto) Harmon % (Auto) Eos % (Auto) Baso % (Auto) Lymph # (Auto) Harmon # (Auto) Eos # (Auto) Baso # (Auto) Absolute Neuts (auto) PT INR APTT D-Dimer, Quantitative Sodium Potassium Chloride Carbon Dioxide Anion Gap BUN Creatinine Est GFR ( Amer) Est GFR (Non-Af Amer) Random Glucose Calcium Phosphorus Magnesium Total Bilirubin AST ALT Alkaline Phosphatase Total Creatine Kinase Troponin I 0.12 D NT-Pro-B Natriuret Pep Total Protein Albumin Globulin Albumin/Globulin Ratio Triglycerides Cholesterol LDL Cholesterol Direct HDL Cholesterol Urine Color Yellow Urine Appearance Sl cloudy Urine pH 6.0 Ur Specific Hulbert <= 1.005 Urine Protein Negative Urine Glucose (UA) 250 H Urine Ketones Trace H Urine Blood Negative Urine Nitrate Positive H Urine Bilirubin Negative Urine Urobilinogen 1.0 H Ur Leukocyte Esterase Small H Urine RBC 0 - 2 Urine WBC 5 - 10 H Ur Epithelial Cells 4 - 5 Urine Bacteria Many Urine Opiates Screen Negative Urine Methadone Screen Negative Ur Barbiturates Screen Negative Ur Phencyclidine Scrn Negative Ur Amphetamines Screen Negative U Benzodiazepines Scrn Negative U Oth Cocaine Metabols Negative U Cannabinoids Screen Negative 07/07/18 07/07/18 07/07/18 02:00 05:00 05:00 WBC 7.6 D RBC 4.46 Hgb 12.9 Hct 39.8 MCV 89.2 MCH 28.9 MCHC 32.4 RDW 12.9 Plt Count 319 MPV 9.0 Neut % (Auto) 52.7 Lymph % (Auto) 36.8 H Harmon % (Auto) 7.6 H Eos % (Auto) 2.4 Baso % (Auto) 0.5 Lymph # (Auto) 2.8 Harmon # (Auto) 0.6 Eos # (Auto) 0.2 Baso # (Auto) 0.04 Absolute Neuts (auto) 4.02 PT INR APTT 193.7 H* D-Dimer, Quantitative Sodium 140 Potassium 3.4 L Chloride 106 Carbon Dioxide 27 Anion Gap 11 BUN 13 Creatinine 0.8 Est GFR ( Amer) > 60 Est GFR (Non-Af Amer) > 60 Random Glucose 296 H Calcium 8.6 Phosphorus 3.3 Magnesium Total Bilirubin 0.5 AST 17 ALT 15 Alkaline Phosphatase 75 Total Creatine Kinase Troponin I NT-Pro-B Natriuret Pep Total Protein 6.8 Albumin 3.5 Globulin 3.4 Albumin/Globulin Ratio 1.0 L Triglycerides 107 Cholesterol 162 LDL Cholesterol Direct 110 HDL Cholesterol 32 Urine Color Urine Appearance Urine pH Ur Specific Hulbert Urine Protein Urine Glucose (UA) Urine Ketones Urine Blood Urine Nitrate Urine Bilirubin Urine Urobilinogen Ur Leukocyte Esterase Urine RBC Urine WBC Ur Epithelial Cells Urine Bacteria Urine Opiates Screen Urine Methadone Screen Ur Barbiturates Screen Ur Phencyclidine Scrn Ur Amphetamines Screen U Benzodiazepines Scrn U Oth Cocaine Metabols U Cannabinoids Screen EKG/Cardiology Studies: Cardiology / EKG Studies 07/06/18 19:59 EKG [ELECTROCARDIOGRAM] Stat Comment: Reason For Exam: admission 07/07/18 03:56 EKG [ELECTROCARDIOGRAM] Stat Comment: Reason For Exam: troponin increase 07/07/18 07:00 EKG [ELECTROCARDIOGRAM] Routine Comment: Reason For Exam: PE Review of Systems - Review of Systems Review of Systems: 12 point ROS completed and negative except as described in HPI. Assessment/Plan - Assessment and Plan (Free Text) Assessment: 53 F with a history of hypertension and shizophrenia presenting with lower leg muscle cramping found to have a DVT and submassive R sided pulmonary embolism. [facility] pharmacy was called and medications were reconciled. Plan: Neurologic/psych -AAO x3 -C/w home Haldol 10 mg BID -Continue to monitor Cadiovascular -Lower Extremity DVT and Central Pulmonary embolism with RV strain -Begin Lisinopril 10mg daily for HTN control, consider adding additional agents if uncontrolled. On no home meds for hypertension. -Maintain MAP >65 -Avoid hypotension -Continue with heparin drip and aspirin -troponin 0.09, 0.12, 0.10 -Repeat EKG this AM unchanged from overnight -F/U echo -Lipid panel WNL -Cardiology on Consult- Dr. Weems Hematological -Lower Extremity DVT and Central Pulmonary embolism with RV strain -Continue with Heparin drip -Consider outpatient coagulopathy workup -AM PTT elevated in light of Jacques ortegaip, continue to monitor -Hem consult - Dr. Owen - recs appreciated Pulmonary -Lower Extremity DVT and Central Pulmonary embolism with RV strain -Maintain O2 sat >92% -Continue with Heparin drip -IR consulted- Dr. Hopper Endocrine -History of DM for which patient does not take medications -F/U TSH and HgA1C -Insulin SCC -continues with fingersticks qACHS -Maintain euglycemia and normothermia Renal -Maintain euvolemia -HypoK repleted this AM -Replete electrolytes as needed DVT ppx: Hep drip Patient seen, case reviewed and plan approved by Dr. Edwina Beaulieu. Agusto Fam,PGY-1 <Jodee Beaulieu - Last Filed: 07/07/18 15:07> CCU Objective - Vital Signs / Intake & Output Vital Signs (Last 4 hours): Vital Signs Temp Pulse Resp BP Pulse Ox 07/07/18 14:06 72 21 184/120 H 97 07/07/18 14:01 74 18 186/131 H 100 07/07/18 14:00 72 20 97 07/07/18 13:50 73 21 97 07/07/18 13:40 76 23 97 07/07/18 13:38 72 19 07/07/18 13:30 75 19 100 07/07/18 13:20 72 20 100 07/07/18 13:14 74 18 185/109 H 97 07/07/18 13:10 74 19 98 07/07/18 13:00 80 43 H 100 07/07/18 12:50 72 21 199/105 H 96 07/07/18 12:48 73 15 201/117 H 97 07/07/18 12:40 72 19 97 07/07/18 12:30 75 18 97 07/07/18 12:20 75 22 98 07/07/18 12:19 77 189/106 H 07/07/18 12:10 74 99 07/07/18 12:06 73 24 07/07/18 12:00 98.1 F 70 17 189/106 H 94 L 07/07/18 11:50 72 23 100 07/07/18 11:40 69 99 07/07/18 11:30 68 26 H 99 07/07/18 11:20 68 15 98 07/07/18 11:10 68 25 H 100 Intake and Output (Last 8hrs): Intake & Output 07/07/18 07/07/18 07/07/18 06:59 14:59 22:59 Intake Total 223 148 Output Total 500 Balance -277 148 Weight 97.522 kg Intake: IV 223 148 Right Hand 121 Output: Urine 500 Urine, Voided 500 Other: Voiding Method Bedpan # Voids Urine, Voided 3 - Medications Active Medications: Active Medications Generic Name Dose Route Start Last Admin Trade Name Freq PRN Reason Stop Dose Admin Amlodipine Besylate 10 mg 07/07/18 12:15 07/07/18 12:19 Norvasc PO 10 mg DAILY EMILIANA Administration Aspirin 81 mg 07/07/18 10:00 07/07/18 09:51 Ecotrin PO 81 mg DAILY EMILIANA Administration Haloperidol 10 mg 07/07/18 11:15 07/07/18 11:47 Haldol PO 10 mg BID EMILIANA Administration Protocol Heparin Sodium/Sodium Chloride 25,000 units in 250 mls @ 17.309 mls/hr 07/06/18 20:28 07/07/18 14:27 Heparin 11494 Units/250ml 1/2 Normal Saline IV 13 units/kg/hr .[id number] PRN 12.501 mls/hr ADJUST RATE PER PROTOCOL Administration Protocol 18 UNITS/KG/HR Nicardipine HCl 20 mg in 200 mls @ 50 mls/hr 07/07/18 14:13 07/07/18 14:24 Cardene Iv Premix IV 5 mg/hr .Q4H PRN 50 mls/hr TITRATE PER MD ORDER Administration Protocol 5 MG/HR Insulin Human Regular 0 units 07/07/18 07:30 07/07/18 11:49 Humulin R Med SC 5 unit ACHS EMILIANA Administration Protocol Lisinopril 10 mg 07/08/18 10:00 Zestril PO DAILY EMILIANA - Patient Studies Lab Studies: Lab Studies 07/07/18 07/07/18 07/07/18 Range/Units 11:27 08:00 08:00 WBC (4.5-11.0) 10^3/uL RBC (3.5-6.1) 10^6/uL Hgb (12.0-16.0) g/dL Hct (36.0-48.0) % MCV (80.0-105.0) fl MCH (25.0-35.0) pg MCHC (31.0-37.0) g/dl RDW (11.5-14.5) % Plt Count (120.0-450.0) 10^3/uL MPV (7.0-11.0) fl Neut % (Auto) (50.0-68.0) % Lymph % (Auto) (22.0-35.0) % Harmon % (Auto) (1.0-6.0) % Eos % (Auto) (1.5-5.0) % Baso % (Auto) (0.0-3.0) % Lymph # (Auto) (1.2-3.4) Harmon # (Auto) (0.1-0.6) Eos # (Auto) (0.0-0.7) Baso # (Auto) (0.0-2.0) K/mm3 Absolute Neuts (auto) (1.4-6.5) PT (9.4-12.5) SECONDS INR APTT 87.2 H (26.9-38.3) Seconds D-Dimer, Quantitative (0-243) ng/mlDDU Sodium (132-148) mmol/L Potassium (3.6-5.0) mmol/L Chloride (98-107) mmol/L Carbon Dioxide (21-33) mmol/L Anion Gap (10-20) BUN (7-21) mg/dL Creatinine (0.7-1.2) mg/dl Est GFR ( Amer) Est GFR (Non-Af Amer) POC Glucose (mg/dL) 284 H (65-110) mg/dL Random Glucose (70-110) mg/dL Calcium (8.4-10.5) mg/dL Phosphorus (2.5-4.5) mg/dL Magnesium (1.7-2.2) mg/dL Total Bilirubin (0.2-1.3) mg/dL AST (14-36) U/L ALT (7-56) U/L Alkaline Phosphatase (38-126) U/L Total Creatine Kinase (35-230) U/L Troponin I ng/mL NT-Pro-B Natriuret Pep (0-450) pg/mL Total Protein (5.8-8.3) g/dL Albumin (3.0-4.8) g/dL Globulin gm/dL Albumin/Globulin Ratio (1.1-1.8) Triglycerides (35-160) mg/dL Cholesterol (130-200) mg/dL LDL Cholesterol Direct (0-129) mg/dL HDL Cholesterol (29-60) mg/dL TSH 3rd Generation 2.84 (0.46-4.68) mIU/mL Urine Color (YELLOW) Urine Appearance (CLEAR) Urine pH (4.7-8.0) Ur Specific Hulbert (1.005-1.035) Urine Protein (<30 mg/dL) mg/dL Urine Glucose (UA) (NEGATIVE) mg/dL Urine Ketones (NEGATIVE) mg/dL Urine Blood (NEGATIVE) Urine Nitrate (NEGATIVE) Urine Bilirubin (NEGATIVE) Urine Urobilinogen (<1 E.U./dL) E.U./dL Ur Leukocyte Esterase (NEGATIVE) Myles/uL Urine RBC (0-2) /hpf Urine WBC (0-6) /hpf Ur Epithelial Cells (0-5) /hpf Urine Bacteria (NONE) /hpf Urine Opiates Screen (NEGATIVE) Urine Methadone Screen (NEGATIVE) Ur Barbiturates Screen (NEGATIVE) Ur Phencyclidine Scrn (NEGATIVE) Ur Amphetamines Screen (NEGATIVE) U Benzodiazepines Scrn (NEGATIVE) U Oth Cocaine Metabols (NEGATIVE) U Cannabinoids Screen (NEGATIVE) 07/07/18 07/07/18 07/07/18 Range/Units 08:00 05:00 05:00 WBC 7.6 D (4.5-11.0) 10^3/uL RBC 4.46 (3.5-6.1) 10^6/uL Hgb 12.9 (12.0-16.0) g/dL Hct 39.8 (36.0-48.0) % MCV 89.2 (80.0-105.0) fl MCH 28.9 (25.0-35.0) pg MCHC 32.4 (31.0-37.0) g/dl RDW 12.9 (11.5-14.5) % Plt Count 319 (120.0-450.0) 10^3/uL MPV 9.0 (7.0-11.0) fl Neut % (Auto) 52.7 (50.0-68.0) % Lymph % (Auto) 36.8 H (22.0-35.0) % Harmon % (Auto) 7.6 H (1.0-6.0) % Eos % (Auto) 2.4 (1.5-5.0) % Baso % (Auto) 0.5 (0.0-3.0) % Lymph # (Auto) 2.8 (1.2-3.4) Harmon # (Auto) 0.6 (0.1-0.6) Eos # (Auto) 0.2 (0.0-0.7) Baso # (Auto) 0.04 (0.0-2.0) K/mm3 Absolute Neuts (auto) 4.02 (1.4-6.5) PT (9.4-12.5) SECONDS INR APTT (26.9-38.3) Seconds D-Dimer, Quantitative (0-243) ng/mlDDU Sodium 140 (132-148) mmol/L Potassium 3.4 L (3.6-5.0) mmol/L Chloride 106 (98-107) mmol/L Carbon Dioxide 27 (21-33) mmol/L Anion Gap 11 (10-20) BUN 13 (7-21) mg/dL Creatinine 0.8 (0.7-1.2) mg/dl Est GFR ( Amer) > 60 Est GFR (Non-Af Amer) > 60 POC Glucose (mg/dL) (65-110) mg/dL Random Glucose 296 H (70-110) mg/dL Calcium 8.6 (8.4-10.5) mg/dL Phosphorus 3.3 (2.5-4.5) mg/dL Magnesium (1.7-2.2) mg/dL Total Bilirubin 0.5 (0.2-1.3) mg/dL AST 17 (14-36) U/L ALT 15 (7-56) U/L Alkaline Phosphatase 75 (38-126) U/L Total Creatine Kinase (35-230) U/L Troponin I 0.10 ng/mL NT-Pro-B Natriuret Pep (0-450) pg/mL Total Protein 6.8 (5.8-8.3) g/dL Albumin 3.5 (3.0-4.8) g/dL Globulin 3.4 gm/dL Albumin/Globulin Ratio 1.0 L (1.1-1.8) Triglycerides 107 (35-160) mg/dL Cholesterol 162 (130-200) mg/dL LDL Cholesterol Direct 110 (0-129) mg/dL HDL Cholesterol 32 (29-60) mg/dL TSH 3rd Generation (0.46-4.68) mIU/mL Urine Color (YELLOW) Urine Appearance (CLEAR) Urine pH (4.7-8.0) Ur Specific Hulbert (1.005-1.035) Urine Protein (<30 mg/dL) mg/dL Urine Glucose (UA) (NEGATIVE) mg/dL Urine Ketones (NEGATIVE) mg/dL Urine Blood (NEGATIVE) Urine Nitrate (NEGATIVE) Urine Bilirubin (NEGATIVE) Urine Urobilinogen (<1 E.U./dL) E.U./dL Ur Leukocyte Esterase (NEGATIVE) Myles/uL Urine RBC (0-2) /hpf Urine WBC (0-6) /hpf Ur Epithelial Cells (0-5) /hpf Urine Bacteria (NONE) /hpf Urine Opiates Screen (NEGATIVE) Urine Methadone Screen (NEGATIVE) Ur Barbiturates Screen (NEGATIVE) Ur Phencyclidine Scrn (NEGATIVE) Ur Amphetamines Screen (NEGATIVE) U Benzodiazepines Scrn (NEGATIVE) U Oth Cocaine Metabols (NEGATIVE) U Cannabinoids Screen (NEGATIVE) 07/07/18 07/07/18 07/07/18 Range/Units 02:00 02:00 00:10 WBC (4.5-11.0) 10^3/uL RBC (3.5-6.1) 10^6/uL Hgb (12.0-16.0) g/dL Hct (36.0-48.0) % MCV (80.0-105.0) fl MCH (25.0-35.0) pg MCHC (31.0-37.0) g/dl RDW (11.5-14.5) % Plt Count (120.0-450.0) 10^3/uL MPV (7.0-11.0) fl Neut % (Auto) (50.0-68.0) % Lymph % (Auto) (22.0-35.0) % Harmon % (Auto) (1.0-6.0) % Eos % (Auto) (1.5-5.0) % Baso % (Auto) (0.0-3.0) % Lymph # (Auto) (1.2-3.4) Harmon # (Auto) (0.1-0.6) Eos # (Auto) (0.0-0.7) Baso # (Auto) (0.0-2.0) K/mm3 Absolute Neuts (auto) (1.4-6.5) PT (9.4-12.5) SECONDS INR APTT 193.7 H* (26.9-38.3) Seconds D-Dimer, Quantitative (0-243) ng/mlDDU Sodium (132-148) mmol/L Potassium (3.6-5.0) mmol/L Chloride (98-107) mmol/L Carbon Dioxide (21-33) mmol/L Anion Gap (10-20) BUN (7-21) mg/dL Creatinine (0.7-1.2) mg/dl Est GFR ( Amer) Est GFR (Non-Af Amer) POC Glucose (mg/dL) (65-110) mg/dL Random Glucose (70-110) mg/dL Calcium (8.4-10.5) mg/dL Phosphorus (2.5-4.5) mg/dL Magnesium (1.7-2.2) mg/dL Total Bilirubin (0.2-1.3) mg/dL AST (14-36) U/L ALT (7-56) U/L Alkaline Phosphatase (38-126) U/L Total Creatine Kinase (35-230) U/L Troponin I 0.12 D ng/mL NT-Pro-B Natriuret Pep (0-450) pg/mL Total Protein (5.8-8.3) g/dL Albumin (3.0-4.8) g/dL Globulin gm/dL Albumin/Globulin Ratio (1.1-1.8) Triglycerides (35-160) mg/dL Cholesterol (130-200) mg/dL LDL Cholesterol Direct (0-129) mg/dL HDL Cholesterol (29-60) mg/dL TSH 3rd Generation (0.46-4.68) mIU/mL Urine Color (YELLOW) Urine Appearance (CLEAR) Urine pH (4.7-8.0) Ur Specific Hulbert (1.005-1.035) Urine Protein (<30 mg/dL) mg/dL Urine Glucose (UA) (NEGATIVE) mg/dL Urine Ketones (NEGATIVE) mg/dL Urine Blood (NEGATIVE) Urine Nitrate (NEGATIVE) Urine Bilirubin (NEGATIVE) Urine Urobilinogen (<1 E.U./dL) E.U./dL Ur Leukocyte Esterase (NEGATIVE) Myles/uL Urine RBC (0-2) /hpf Urine WBC (0-6) /hpf Ur Epithelial Cells (0-5) /hpf Urine Bacteria (NONE) /hpf Urine Opiates Screen Negative (NEGATIVE) Urine Methadone Screen Negative (NEGATIVE) Ur Barbiturates Screen Negative (NEGATIVE) Ur Phencyclidine Scrn Negative (NEGATIVE) Ur Amphetamines Screen Negative (NEGATIVE) U Benzodiazepines Scrn Negative (NEGATIVE) U Oth Cocaine Metabols Negative (NEGATIVE) U Cannabinoids Screen Negative (NEGATIVE) 07/07/18 07/06/18 07/06/18 Range/Units 00:10 21:21 20:11 WBC (4.5-11.0) 10^3/uL RBC (3.5-6.1) 10^6/uL Hgb (12.0-16.0) g/dL Hct (36.0-48.0) % MCV (80.0-105.0) fl MCH (25.0-35.0) pg MCHC (31.0-37.0) g/dl RDW (11.5-14.5) % Plt Count (120.0-450.0) 10^3/uL MPV (7.0-11.0) fl Neut % (Auto) (50.0-68.0) % Lymph % (Auto) (22.0-35.0) % Harmon % (Auto) (1.0-6.0) % Eos % (Auto) (1.5-5.0) % Baso % (Auto) (0.0-3.0) % Lymph # (Auto) (1.2-3.4) Harmon # (Auto) (0.1-0.6) Eos # (Auto) (0.0-0.7) Baso # (Auto) (0.0-2.0) K/mm3 Absolute Neuts (auto) (1.4-6.5) PT 14.2 H (9.4-12.5) SECONDS INR 1.28 APTT 24.7 L (26.9-38.3) Seconds D-Dimer, Quantitative 1332 H (0-243) ng/mlDDU Sodium (132-148) mmol/L Potassium (3.6-5.0) mmol/L Chloride (98-107) mmol/L Carbon Dioxide (21-33) mmol/L Anion Gap (10-20) BUN (7-21) mg/dL Creatinine (0.7-1.2) mg/dl Est GFR ( Amer) Est GFR (Non-Af Amer) POC Glucose (mg/dL) (65-110) mg/dL Random Glucose (70-110) mg/dL Calcium (8.4-10.5) mg/dL Phosphorus (2.5-4.5) mg/dL Magnesium 1.9 (1.7-2.2) mg/dL Total Bilirubin (0.2-1.3) mg/dL AST (14-36) U/L ALT (7-56) U/L Alkaline Phosphatase (38-126) U/L Total Creatine Kinase (35-230) U/L Troponin I ng/mL NT-Pro-B Natriuret Pep (0-450) pg/mL Total Protein (5.8-8.3) g/dL Albumin (3.0-4.8) g/dL Globulin gm/dL Albumin/Globulin Ratio (1.1-1.8) Triglycerides (35-160) mg/dL Cholesterol (130-200) mg/dL LDL Cholesterol Direct (0-129) mg/dL HDL Cholesterol (29-60) mg/dL TSH 3rd Generation (0.46-4.68) mIU/mL Urine Color Yellow (YELLOW) Urine Appearance Sl cloudy (CLEAR) Urine pH 6.0 (4.7-8.0) Ur Specific Hulbert <= 1.005 (1.005-1.035) Urine Protein Negative (<30 mg/dL) mg/dL Urine Glucose (UA) 250 H (NEGATIVE) mg/dL Urine Ketones Trace H (NEGATIVE) mg/dL Urine Blood Negative (NEGATIVE) Urine Nitrate Positive H (NEGATIVE) Urine Bilirubin Negative (NEGATIVE) Urine Urobilinogen 1.0 H (<1 E.U./dL) E.U./dL Ur Leukocyte Esterase Small H (NEGATIVE) Myles/uL Urine RBC 0 - 2 (0-2) /hpf Urine WBC 5 - 10 H (0-6) /hpf Ur Epithelial Cells 4 - 5 (0-5) /hpf Urine Bacteria Many (NONE) /hpf Urine Opiates Screen (NEGATIVE) Urine Methadone Screen (NEGATIVE) Ur Barbiturates Screen (NEGATIVE) Ur Phencyclidine Scrn (NEGATIVE) Ur Amphetamines Screen (NEGATIVE) U Benzodiazepines Scrn (NEGATIVE) U Oth Cocaine Metabols (NEGATIVE) U Cannabinoids Screen (NEGATIVE) 07/06/18 07/06/18 07/06/18 Range/Units 19:30 19:30 19:30 WBC 10.7 (4.5-11.0) 10^3/uL RBC 4.76 (3.5-6.1) 10^6/uL Hgb 14.0 (12.0-16.0) g/dL Hct 42.0 (36.0-48.0) % MCV 88.2 (80.0-105.0) fl MCH 29.4 (25.0-35.0) pg MCHC 33.3 (31.0-37.0) g/dl RDW 12.8 (11.5-14.5) % Plt Count 392 (120.0-450.0) 10^3/uL MPV 9.8 (7.0-11.0) fl Neut % (Auto) 80.1 H (50.0-68.0) % Lymph % (Auto) 12.8 L (22.0-35.0) % Harmon % (Auto) 6.5 H (1.0-6.0) % Eos % (Auto) 0.3 L (1.5-5.0) % Baso % (Auto) 0.3 (0.0-3.0) % Lymph # (Auto) 1.4 (1.2-3.4) Harmon # (Auto) 0.7 H (0.1-0.6) Eos # (Auto) 0.0 (0.0-0.7) Baso # (Auto) 0.03 (0.0-2.0) K/mm3 Absolute Neuts (auto) 8.58 H (1.4-6.5) PT (9.4-12.5) SECONDS INR APTT (26.9-38.3) Seconds D-Dimer, Quantitative (0-243) ng/mlDDU Sodium (132-148) mmol/L Potassium (3.6-5.0) mmol/L Chloride (98-107) mmol/L Carbon Dioxide (21-33) mmol/L Anion Gap (10-20) BUN (7-21) mg/dL Creatinine (0.7-1.2) mg/dl Est GFR ( Amer) Est GFR (Non-Af Amer) POC Glucose (mg/dL) (65-110) mg/dL Random Glucose (70-110) mg/dL Calcium (8.4-10.5) mg/dL Phosphorus (2.5-4.5) mg/dL Magnesium (1.7-2.2) mg/dL Total Bilirubin (0.2-1.3) mg/dL AST (14-36) U/L ALT (7-56) U/L Alkaline Phosphatase (38-126) U/L Total Creatine Kinase (35-230) U/L Troponin I 0.09 ng/mL NT-Pro-B Natriuret Pep 1070 H (0-450) pg/mL Total Protein (5.8-8.3) g/dL Albumin (3.0-4.8) g/dL Globulin gm/dL Albumin/Globulin Ratio (1.1-1.8) Triglycerides (35-160) mg/dL Cholesterol (130-200) mg/dL LDL Cholesterol Direct (0-129) mg/dL HDL Cholesterol (29-60) mg/dL TSH 3rd Generation (0.46-4.68) mIU/mL Urine Color (YELLOW) Urine Appearance (CLEAR) Urine pH (4.7-8.0) Ur Specific Hulbert (1.005-1.035) Urine Protein (<30 mg/dL) mg/dL Urine Glucose (UA) (NEGATIVE) mg/dL Urine Ketones (NEGATIVE) mg/dL Urine Blood (NEGATIVE) Urine Nitrate (NEGATIVE) Urine Bilirubin (NEGATIVE) Urine Urobilinogen (<1 E.U./dL) E.U./dL Ur Leukocyte Esterase (NEGATIVE) Myles/uL Urine RBC (0-2) /hpf Urine WBC (0-6) /hpf Ur Epithelial Cells (0-5) /hpf Urine Bacteria (NONE) /hpf Urine Opiates Screen (NEGATIVE) Urine Methadone Screen (NEGATIVE) Ur Barbiturates Screen (NEGATIVE) Ur Phencyclidine Scrn (NEGATIVE) Ur Amphetamines Screen (NEGATIVE) U Benzodiazepines Scrn (NEGATIVE) U Oth Cocaine Metabols (NEGATIVE) U Cannabinoids Screen (NEGATIVE) 07/06/18 Range/Units 19:30 WBC (4.5-11.0) 10^3/uL RBC (3.5-6.1) 10^6/uL Hgb (12.0-16.0) g/dL Hct (36.0-48.0) % MCV (80.0-105.0) fl MCH (25.0-35.0) pg MCHC (31.0-37.0) g/dl RDW (11.5-14.5) % Plt Count (120.0-450.0) 10^3/uL MPV (7.0-11.0) fl Neut % (Auto) (50.0-68.0) % Lymph % (Auto) (22.0-35.0) % Harmon % (Auto) (1.0-6.0) % Eos % (Auto) (1.5-5.0) % Baso % (Auto) (0.0-3.0) % Lymph # (Auto) (1.2-3.4) Harmon # (Auto) (0.1-0.6) Eos # (Auto) (0.0-0.7) Baso # (Auto) (0.0-2.0) K/mm3 Absolute Neuts (auto) (1.4-6.5) PT (9.4-12.5) SECONDS INR APTT (26.9-38.3) Seconds D-Dimer, Quantitative (0-243) ng/mlDDU Sodium 139 (132-148) mmol/L Potassium 4.1 (3.6-5.0) mmol/L Chloride 101 (98-107) mmol/L Carbon Dioxide 25 (21-33) mmol/L Anion Gap 17 (10-20) BUN 15 (7-21) mg/dL Creatinine 0.9 (0.7-1.2) mg/dl Est GFR ( Amer) > 60 Est GFR (Non-Af Amer) > 60 POC Glucose (mg/dL) (65-110) mg/dL Random Glucose 308 H* (70-110) mg/dL Calcium 9.4 (8.4-10.5) mg/dL Phosphorus (2.5-4.5) mg/dL Magnesium 1.8 (1.7-2.2) mg/dL Total Bilirubin 0.9 (0.2-1.3) mg/dL AST 30 (14-36) U/L ALT 16 (7-56) U/L Alkaline Phosphatase 82 (38-126) U/L Total Creatine Kinase 81 (35-230) U/L Troponin I ng/mL NT-Pro-B Natriuret Pep (0-450) pg/mL Total Protein 8.2 (5.8-8.3) g/dL Albumin 4.1 (3.0-4.8) g/dL Globulin 4.0 gm/dL Albumin/Globulin Ratio 1.0 L (1.1-1.8) Triglycerides (35-160) mg/dL Cholesterol (130-200) mg/dL LDL Cholesterol Direct (0-129) mg/dL HDL Cholesterol (29-60) mg/dL TSH 3rd Generation (0.46-4.68) mIU/mL Urine Color (YELLOW) Urine Appearance (CLEAR) Urine pH (4.7-8.0) Ur Specific Hulbert (1.005-1.035) Urine Protein (<30 mg/dL) mg/dL Urine Glucose (UA) (NEGATIVE) mg/dL Urine Ketones (NEGATIVE) mg/dL Urine Blood (NEGATIVE) Urine Nitrate (NEGATIVE) Urine Bilirubin (NEGATIVE) Urine Urobilinogen (<1 E.U./dL) E.U./dL Ur Leukocyte Esterase (NEGATIVE) Myles/uL Urine RBC (0-2) /hpf Urine WBC (0-6) /hpf Ur Epithelial Cells (0-5) /hpf Urine Bacteria (NONE) /hpf Urine Opiates Screen (NEGATIVE) Urine Methadone Screen (NEGATIVE) Ur Barbiturates Screen (NEGATIVE) Ur Phencyclidine Scrn (NEGATIVE) Ur Amphetamines Screen (NEGATIVE) U Benzodiazepines Scrn (NEGATIVE) U Oth Cocaine Metabols (NEGATIVE) U Cannabinoids Screen (NEGATIVE) Laboratory Results - last 24 hr 07/06/18 07/06/18 07/06/18 19:30 19:30 19:30 WBC 10.7 RBC 4.76 Hgb 14.0 Hct 42.0 MCV 88.2 MCH 29.4 MCHC 33.3 RDW 12.8 Plt Count 392 MPV 9.8 Neut % (Auto) 80.1 H Lymph % (Auto) 12.8 L Harmon % (Auto) 6.5 H Eos % (Auto) 0.3 L Baso % (Auto) 0.3 Lymph # (Auto) 1.4 Harmon # (Auto) 0.7 H Eos # (Auto) 0.0 Baso # (Auto) 0.03 Absolute Neuts (auto) 8.58 H PT INR APTT D-Dimer, Quantitative Sodium 139 Potassium 4.1 Chloride 101 Carbon Dioxide 25 Anion Gap 17 BUN 15 Creatinine 0.9 Est GFR ( Amer) > 60 Est GFR (Non-Af Amer) > 60 POC Glucose (mg/dL) Random Glucose 308 H* Calcium 9.4 Phosphorus Magnesium 1.8 Total Bilirubin 0.9 AST 30 ALT 16 Alkaline Phosphatase 82 Total Creatine Kinase 81 Troponin I 0.09 NT-Pro-B Natriuret Pep Total Protein 8.2 Albumin 4.1 Globulin 4.0 Albumin/Globulin Ratio 1.0 L Triglycerides Cholesterol LDL Cholesterol Direct HDL Cholesterol TSH 3rd Generation Urine Color Urine Appearance Urine pH Ur Specific Hulbert Urine Protein Urine Glucose (UA) Urine Ketones Urine Blood Urine Nitrate Urine Bilirubin Urine Urobilinogen Ur Leukocyte Esterase Urine RBC Urine WBC Ur Epithelial Cells Urine Bacteria Urine Opiates Screen Urine Methadone Screen Ur Barbiturates Screen Ur Phencyclidine Scrn Ur Amphetamines Screen U Benzodiazepines Scrn U Oth Cocaine Metabols U Cannabinoids Screen 07/06/18 07/06/18 07/06/18 19:30 20:11 21:21 WBC RBC Hgb Hct MCV MCH MCHC RDW Plt Count MPV Neut % (Auto) Lymph % (Auto) Harmon % (Auto) Eos % (Auto) Baso % (Auto) Lymph # (Auto) Harmon # (Auto) Eos # (Auto) Baso # (Auto) Absolute Neuts (auto) PT 14.2 H INR 1.28 APTT 24.7 L D-Dimer, Quantitative 1332 H Sodium Potassium Chloride Carbon Dioxide Anion Gap BUN Creatinine Est GFR ( Amer) Est GFR (Non-Af Amer) POC Glucose (mg/dL) Random Glucose Calcium Phosphorus Magnesium 1.9 Total Bilirubin AST ALT Alkaline Phosphatase Total Creatine Kinase Troponin I NT-Pro-B Natriuret Pep 1070 H Total Protein Albumin Globulin Albumin/Globulin Ratio Triglycerides Cholesterol LDL Cholesterol Direct HDL Cholesterol TSH 3rd Generation Urine Color Urine Appearance Urine pH Ur Specific Hulbert Urine Protein Urine Glucose (UA) Urine Ketones Urine Blood Urine Nitrate Urine Bilirubin Urine Urobilinogen Ur Leukocyte Esterase Urine RBC Urine WBC Ur Epithelial Cells Urine Bacteria Urine Opiates Screen Urine Methadone Screen Ur Barbiturates Screen Ur Phencyclidine Scrn Ur Amphetamines Screen U Benzodiazepines Scrn U Oth Cocaine Metabols U Cannabinoids Screen 07/07/18 07/07/18 07/07/18 00:10 00:10 02:00 WBC RBC Hgb Hct MCV MCH MCHC RDW Plt Count MPV Neut % (Auto) Lymph % (Auto) Harmon % (Auto) Eos % (Auto) Baso % (Auto) Lymph # (Auto) Harmon # (Auto) Eos # (Auto) Baso # (Auto) Absolute Neuts (auto) PT INR APTT D-Dimer, Quantitative Sodium Potassium Chloride Carbon Dioxide Anion Gap BUN Creatinine Est GFR ( Amer) Est GFR (Non-Af Amer) POC Glucose (mg/dL) Random Glucose Calcium Phosphorus Magnesium Total Bilirubin AST ALT Alkaline Phosphatase Total Creatine Kinase Troponin I 0.12 D NT-Pro-B Natriuret Pep Total Protein Albumin Globulin Albumin/Globulin Ratio Triglycerides Cholesterol LDL Cholesterol Direct HDL Cholesterol TSH 3rd Generation Urine Color Yellow Urine Appearance Sl cloudy Urine pH 6.0 Ur Specific Hulbert <= 1.005 Urine Protein Negative Urine Glucose (UA) 250 H Urine Ketones Trace H Urine Blood Negative Urine Nitrate Positive H Urine Bilirubin Negative Urine Urobilinogen 1.0 H Ur Leukocyte Esterase Small H Urine RBC 0 - 2 Urine WBC 5 - 10 H Ur Epithelial Cells 4 - 5 Urine Bacteria Many Urine Opiates Screen Negative Urine Methadone Screen Negative Ur Barbiturates Screen Negative Ur Phencyclidine Scrn Negative Ur Amphetamines Screen Negative U Benzodiazepines Scrn Negative U Oth Cocaine Metabols Negative U Cannabinoids Screen Negative 07/07/18 07/07/18 07/07/18 02:00 05:00 05:00 WBC 7.6 D RBC 4.46 Hgb 12.9 Hct 39.8 MCV 89.2 MCH 28.9 MCHC 32.4 RDW 12.9 Plt Count 319 MPV 9.0 Neut % (Auto) 52.7 Lymph % (Auto) 36.8 H Harmon % (Auto) 7.6 H Eos % (Auto) 2.4 Baso % (Auto) 0.5 Lymph # (Auto) 2.8 Harmon # (Auto) 0.6 Eos # (Auto) 0.2 Baso # (Auto) 0.04 Absolute Neuts (auto) 4.02 PT INR APTT 193.7 H* D-Dimer, Quantitative Sodium 140 Potassium 3.4 L Chloride 106 Carbon Dioxide 27 Anion Gap 11 BUN 13 Creatinine 0.8 Est GFR ( Amer) > 60 Est GFR (Non-Af Amer) > 60 POC Glucose (mg/dL) Random Glucose 296 H Calcium 8.6 Phosphorus 3.3 Magnesium Total Bilirubin 0.5 AST 17 ALT 15 Alkaline Phosphatase 75 Total Creatine Kinase Troponin I NT-Pro-B Natriuret Pep Total Protein 6.8 Albumin 3.5 Globulin 3.4 Albumin/Globulin Ratio 1.0 L Triglycerides 107 Cholesterol 162 LDL Cholesterol Direct 110 HDL Cholesterol 32 TSH 3rd Generation Urine Color Urine Appearance Urine pH Ur Specific Hulbert Urine Protein Urine Glucose (UA) Urine Ketones Urine Blood Urine Nitrate Urine Bilirubin Urine Urobilinogen Ur Leukocyte Esterase Urine RBC Urine WBC Ur Epithelial Cells Urine Bacteria Urine Opiates Screen Urine Methadone Screen Ur Barbiturates Screen Ur Phencyclidine Scrn Ur Amphetamines Screen U Benzodiazepines Scrn U Oth Cocaine Metabols U Cannabinoids Screen 07/07/18 07/07/18 07/07/18 08:00 08:00 08:00 WBC RBC Hgb Hct MCV MCH MCHC RDW Plt Count MPV Neut % (Auto) Lymph % (Auto) Harmon % (Auto) Eos % (Auto) Baso % (Auto) Lymph # (Auto) Harmon # (Auto) Eos # (Auto) Baso # (Auto) Absolute Neuts (auto) PT INR APTT 87.2 H D-Dimer, Quantitative Sodium Potassium Chloride Carbon Dioxide Anion Gap BUN Creatinine Est GFR ( Amer) Est GFR (Non-Af Amer) POC Glucose (mg/dL) Random Glucose Calcium Phosphorus Magnesium Total Bilirubin AST ALT Alkaline Phosphatase Total Creatine Kinase Troponin I 0.10 NT-Pro-B Natriuret Pep Total Protein Albumin Globulin Albumin/Globulin Ratio Triglycerides Cholesterol LDL Cholesterol Direct HDL Cholesterol TSH 3rd Generation 2.84 Urine Color Urine Appearance Urine pH Ur Specific Hulbert Urine Protein Urine Glucose (UA) Urine Ketones Urine Blood Urine Nitrate Urine Bilirubin Urine Urobilinogen Ur Leukocyte Esterase Urine RBC Urine WBC Ur Epithelial Cells Urine Bacteria Urine Opiates Screen Urine Methadone Screen Ur Barbiturates Screen Ur Phencyclidine Scrn Ur Amphetamines Screen U Benzodiazepines Scrn U Oth Cocaine Metabols U Cannabinoids Screen 07/07/18 11:27 WBC RBC Hgb Hct MCV MCH MCHC RDW Plt Count MPV Neut % (Auto) Lymph % (Auto) Harmon % (Auto) Eos % (Auto) Baso % (Auto) Lymph # (Auto) Harmon # (Auto) Eos # (Auto) Baso # (Auto) Absolute Neuts (auto) PT INR APTT D-Dimer, Quantitative Sodium Potassium Chloride Carbon Dioxide Anion Gap BUN Creatinine Est GFR ( Amer) Est GFR (Non-Af Amer) POC Glucose (mg/dL) 284 H Random Glucose Calcium Phosphorus Magnesium Total Bilirubin AST ALT Alkaline Phosphatase Total Creatine Kinase Troponin I NT-Pro-B Natriuret Pep Total Protein Albumin Globulin Albumin/Globulin Ratio Triglycerides Cholesterol LDL Cholesterol Direct HDL Cholesterol TSH 3rd Generation Urine Color Urine Appearance Urine pH Ur Specific Hulbert Urine Protein Urine Glucose (UA) Urine Ketones Urine Blood Urine Nitrate Urine Bilirubin Urine Urobilinogen Ur Leukocyte Esterase Urine RBC Urine WBC Ur Epithelial Cells Urine Bacteria Urine Opiates Screen Urine Methadone Screen Ur Barbiturates Screen Ur Phencyclidine Scrn Ur Amphetamines Screen U Benzodiazepines Scrn U Oth Cocaine Metabols U Cannabinoids Screen Radiology Impressions: Radiology Impressions Chest CT 07/06/18 20:04 IMPRESSION: There is a large embolus in the right main pulmonary artery and segmental branches. There is mild enlargement of the right ventricle EKG/Cardiology Studies: Cardiology / EKG Studies 07/06/18 19:59 EKG [ELECTROCARDIOGRAM] Stat Comment: Reason For Exam: admission 07/07/18 03:56 EKG [ELECTROCARDIOGRAM] Stat Comment: Reason For Exam: troponin increase 07/07/18 07:00 EKG [ELECTROCARDIOGRAM] Routine Comment: Reason For Exam: PE Critical Care Progress Note - Nutrition Nutrition: Nutrition Category Date Time Status Heart Healthy Diet [DIET] Diets 07/07/18 Breakfast Active Addendum Addendum: 07/07/18 15:07 MICU Attending addendum Patient seen and examined with housestaff Agree with resident note above with the follow add/exceptions 53 F with a history of hypertension and shizophrenia presenting with lower leg muscle cramping found to have a DVT and large right segmental PE. Not hypotensive but evidence of rv strain and slight elevated TNI. Not indicated for tpa Cont heparin for now Unclear etio of DVT/PE however she does not have medical follow up and has never had routine screening such as mammo, pap or colonscopy. Will need to have workup outpatient. Cont to monitor in ICU for now FULL CODE Rest of care as per above resident note Jodee Beaulieu MD MICU Attending
--- NOTE | 2018-07-07 09:33 | CT ---
Date of service: 07/06/2018 PROCEDURE: CT Chest with contrast (Pulmonary Angiogram) HISTORY: r/o pe COMPARISON: None available. TECHNIQUE: Axial computed tomography images were obtained of the chest in the pulmonary arterial phase of enhancement. Coronal and sagittal reformatted images were created and reviewed. Intravenous contrast dose: 100 cc of Omni 350 Radiation dose: Total exam DLP = 516.5 mGy-cm. This CT exam was performed using one or more of the following dose reduction techniques: Automated exposure control, adjustment of the mA and/or kV according to patient size, and/or use of iterative reconstruction technique. FINDINGS: PULMONARY ARTERIES: There is a large embolus in the right main pulmonary artery and segmental branches. There is mild enlargement of the right ventricle AORTA: No acute findings. No thoracic aortic aneurysm. No aortic atherosclerotic calcification or mural plaque present. LUNGS: Unremarkable. No nodule, mass or pulmonary consolidation. PLEURAL SPACES: Unremarkable. No effusion or pneumothorax. HEART: Unremarkable. No cardiomegaly. No significant pericardial effusion. LYMPH NODES: No lymphadenopathy. BONES, CHEST WALL: Unremarkable. No fracture or destructive lesion OTHER FINDINGS: Nonobstructing 8 mm stone in the upper pole of the left kidney. The report concurs with the preliminary [facility] report IMPRESSION: There is a large embolus in the right main pulmonary artery and segmental branches. There is mild enlargement of the right ventricle
[2018-07-07] MEDS: Insulin Reg-MEDIUM-Coverage SC SCH ×4 (09:49→22:53)
[2018-07-07] MEDS ORDERED: Potassium Chloride 20 mEq ER Tab PO ONE (10:00)
[2018-07-07] MEDS: Nicardipine 20 MG/200 ML 20 MG/200 ML BAG IV PRN ×4 (14:24→22:53)
[2018-07-07] MEDS: Heparin 25,000units in 1/2NS /250 ML BAG IV PRN (14:27)
--- NOTE | 2018-07-07 15:48 | CARD ---
APPROVED REPORT Date of service: 07/06/2018 EKG Measurement Heart [id number] <Conclusion> Normal sinus rhythm Possible Left atrial enlargement Left ventricular hypertrophy T wave abnormality, consider anterolateral ischemia Prolonged QT Abnormal ECG
--- NOTE | 2018-07-07 15:51 | CARD ---
APPROVED REPORT Date of service: 07/07/2018 EXAM: Two-dimensional and M-mode echocardiogram with Doppler and color Doppler. INDICATION Pulmonary Embolism 2D DIMENSIONS Left Atrium (2D)3.8 (1.6-4.0cm)IVSd1.9 (0.7-1.1cm) LVDd4.8 (3.9-5.9cm)PWd1.1 (0.7-1.1cm) LVDs3.7 (2.5-4.0cm)FS (%) 24.4 % LVEF (%)48.3 (>50%) M-Mode DIMENSIONS Aortic Root2.20 (2.2-3.7cm)Aortic Cusp Exc.1.30 (1.5-2.0cm) Aortic Valve AoV Peak Zruqxaas176.0cm/Al Peak GR.9mmHg Mitral Valve MV E Jtvbmsou33.8cm/sMV A Iuioddev209.0cm/sE/A ratio0.6 TDI E/Lateral E'0.0E/Medial E'0.0 Tricuspid Valve TR Peak [id number]/sRAP [id number] Peak Gr.32mmHg [id number] LEFT VENTRICLE The left ventricle is normal size. There is moderate to severe concentric left ventricular hypertrophy. Left ventricle ejection fraction is borderline. There is normal LV segmental wall motion. Transmitral Doppler flow pattern is Grade I-abnormal relaxation pattern. No left ventricle thrombus noted on this study. RIGHT VENTRICLE The right ventricle is normal size. There is normal right ventricular wall thickness. RV Systolic function is mildly reduced. ATRIA The left atrium size is normal. The right atrium size is normal. AORTIC VALVE The aortic valve is normal in structure. There is mild aortic regurgitation. There is no aortic valvular stenosis. MITRAL VALVE The mitral valve is normal in structure. Mitral regurgitation is mild. There is no mitral valve stenosis. TRICUSPID VALVE The tricuspid valve is normal in structure. There is mild tricuspid regurgitation. There is mild pulmonary hypertension. PULMONIC VALVE The pulmonary valve is normal in structure. There is no pulmonic valvular regurgitation. GREAT VESSELS The aortic root is normal in size. The IVC is normal in size and collapses >50% with inspiration. PERICARDIAL EFFUSION There is no pericardial effusion. <Conclusion> The left ventricle is normal size. There is moderate to severe concentric left ventricular hypertrophy. Left ventricle ejection fraction is borderline. There is normal LV segmental wall motion. Transmitral Doppler flow pattern is Grade I-abnormal relaxation pattern. RV Systolic function is mildly reduced. There is mild aortic regurgitation. Mitral regurgitation is mild. There is mild tricuspid regurgitation. There is mild pulmonary hypertension.
--- NOTE | 2018-07-07 18:55 | HP ---
DATE OF EXAM: 07/07/2018 CHIEF COMPLAINT AND HISTORY OF PRESENT ILLNESS: This is a 53-year-old female who is coming into the hospital with a past medical history of schizophrenia, taking Haldol. She says that she has been having pain in her leg. She thought it was cramping that she had. She said it is mostly in the left lower extremity, so she came into the ER for further evaluation. She also has chronic tremors. The patient has been following up with her primary care doctor and her psychiatrist. She did not have any recent travels where she sat for a long period of time. The patient does not take oral contraceptives. She has not had any surgeries recently. She has no complaints of any abdominal pain. No back pain. No dysuria or frequency. She says that she also has started getting short of breath for the past few weeks mostly when she tries to do things on her own, but was not too concerned. She has no chest pain, no headaches or dizziness. She denies any hallucinations. REVIEW OF SYMPTOMS: All other review of symptoms are within normal limits except what was mentioned. PAST MEDICAL HISTORY: Schizophrenia, hypertension. PAST SURGICAL HISTORY: None. FAMILY HISTORY: Noncontributory. SOCIAL HISTORY: She was brought into the hospital by her daughter. The patient states she lives alone. PHYSICAL EXAMINATION VITAL SIGNS: Temperature is 98.3, pulse of 74, blood pressure is 177/132. GENERAL: The patient is lying in bed, comfortable, and in no acute distress. HEENT: Atraumatic and normocephalic. Anicteric sclerae. Moist mucosa. [place] conjunctivae. No oral lesions. NECK: No JVD, anterior and posterior adenopathy, thyromegaly, or bruits. CARDIOVASCULAR: S1 and S2 regular. No murmurs, rubs or gallops. LUNGS: Clear to auscultation bilaterally. No wheezes, rales, or rhonchi. ABDOMEN: Bowel sounds are positive. Soft, nontender and nondistended. No hepatosplenomegaly. No rebound and no guarding. EXTREMITIES: No cyanosis, clubbing, or edema. NEUROLOGIC: No facial asymmetry. Tongue is midline. No uvula deviation. Power is 5/5 in upper extremities and lower extremities. Sensation intact in upper extremities and lower extremities. PSYCHIATRIC: She is awake, alert and oriented x3. No anxiety or depression. She has a normal affect. GENITOURINARY: No CVA tenderness. VASCULAR: 2+ pulses in the carotid pulses and pedal pulses. SKIN: No erythema or nodules. SPINE: Shows normal curvature. LABORATORY DATA: White count of 10.7, hemoglobin is 14. INR is 1.28. D-dimer is 1332. Chemistry shows the potassium is 3.4, LDL is 110, troponin is 0.12, a repeat is 0.1. Urine shows nitrites are positive, bilirubin is negative. Urine tox is negative. A CT of chest shows a large embolus of the right main pulmonary artery and subsegmental branches. ASSESSMENT: 1. Pulmonary embolism. 2. Schizophrenia. 3. Hypertension. 4. Hypokalemia. PLAN: The patient has been started on lisinopril for hypertension. The patient is on aspirin daily. She is going to be on Haldol. She has heparin that has been started. She is going to be seen by Dr. Weems and by Dr. Ross Hopper from IR and also by Hematology with Dr. Owen. She is currently comfortable, does not complain of any shortness of breath. We will repeat her blood work tomorrow. She will also need better blood pressure control. I will also add amlodipine 10 mg to her regimen for her blood pressure as her blood pressure is uncontrolled. Israel Urbina MD
--- NOTE | 2018-07-07 19:10 | CARD ---
APPROVED REPORT Date of service: 07/07/2018 EKG Measurement Heart [id number] NH [id number] [id number] <Conclusion> Normal sinus rhythm Possible Left atrial enlargement Left ventricular hypertrophy ST & T wave abnormalities Poor R wave progression across the precordial leads- cannot exclude AMI Prolonged QT CCR Abnormal ECG
[2018-07-08] MEDS: Nicardipine 20 MG/200 ML 20 MG/200 ML BAG IV PRN (01:40)
[2018-07-08 05:38] LABS: BASO # 0.02 K/mm3 (0.0-2.0); BASO % 0.3 % (0.0-3.0); EOS # 0.3 (0.0-0.7); EOS % 5.5 % (1.5-5.0); HEMOGLOBIN 13.7 g/dL (12.0-16.0); LYMPH # 2.4 (1.2-3.4); LYMPH % 40.4 % (22.0-35.0); MEAN CELL VOLUME 87.9 fl (80.0-105.0); MEAN CORPUSCULAR HGB CONC 32.9 g/dl (31.0-37.0); MEAN PLATELET VOLUME 9.1 fl (7.0-11.0); MONO # 0.4 (0.1-0.6); MONO % 6.4 % (1.0-6.0); RBC 4.73 10^6/uL (3.5-6.1); RED CELL DISTRIBUTION WIDTH 12.5 % (11.5-14.5); WHITE BLOOD COUNT 5.8 10^3/uL (4.5-11.0)
[2018-07-08 06:11] LABS: ALBUMIN 3.7 g/dL (3.0-4.8); ALT/SGPT 20 U/L (7-56); AST/SGOT 26 U/L (14-36); BLOOD UREA NITROGEN 10 mg/dL (7-21); CALCIUM 8.9 mg/dL (8.4-10.5); GFR NON-AFRICAN AMERICAN > 60
[2018-07-08] MEDS: Insulin Reg-MEDIUM-Coverage SC SCH (08:24)
--- NOTE | 2018-07-08 10:14 | CP.CCUPN ---
<Agusto Fam - Last Filed: 07/08/18 10:06> CCU Subjective - Physician Review Subjective (Free Text): Agusto Fam PGY-1 Critical Care Progress Note Patient seen and evaluated at bedside. No acute events reported overnight. Patient sitting up in bed, hemodynamically stable. Patient denies current chest pain, palpitations, shortness of breath, and headaches. CCU Objective - Vital Signs / Intake & Output Vital Signs (Last 4 hours): Vital Signs Temp Pulse Resp BP Pulse Ox 07/08/18 09:41 75 136/73 07/08/18 08:46 67 07/08/18 07:30 97.6 F 07/08/18 06:22 96 07/08/18 06:20 62 15 96 07/08/18 06:10 63 16 97 Intake and Output (Last 8hrs): Intake & Output 07/07/18 07/08/18 07/08/18 22:59 06:59 14:59 Intake Total 944 1473 Output Total 550 1100 Balance 394 373 Intake: IV 944 1473 Cardene 960 Heparin 150 Left Antecubital 200 Right Hand 144 Oral 0 Tube Feeding 0 TPN/PPN 0 Blood Product 0 Lipid 0 Albumin 0 Other 0 Output: Urine 550 1100 Urine, Voided 550 1100 Stool 0 Urine/Stool Mix 0 Emesis 0 Oral Regurgitation 0 Other 0 Other: # Voids Urine, Voided 2 # Bowel Movements 0 - Physical Exam Head: Positive for: Atraumatic, Normocephalic Pupils: Positive for: PERRL Extroacular Muscles: Positive for: EOMI Conjunctiva: Positive for: Normal Mouth: Positive for: Moist Mucous Membranes Nose (External): Positive for: Atraumatic. Negative for: Abrasion, Contusion, Laceration, Lesions, Other Nose (Internal): Positive for: Normal Inspection, No Active Bleeding. Negative for: Rhinorrhea, Septal Deviation, Septal Hematoma, Epistaxis Neck: Positive for: Normal Range of Motion Respiratory/Chest: Positive for: Clear to Auscultation, Good Air Exchange. Negative for: Respiratory Distress, Accessory Muscle Use Cardiovascular: Positive for: Regular Rate and Rhythm, Normal S1, S2. Negative for: Murmurs Abdomen: Negative for: Tenderness, Distention, Peritoneal Signs Back: Positive for: Normal Inspection Upper Extremity: Positive for: Normal Inspection. Negative for: Cyanosis, Edema Lower Extremity: Positive for: Normal Inspection, NORMAL PULSES, Normal ROM, Neurovascularly Intact, Capillary Refill < 2 s, Other (Bilateral LE: no tenderness,erythema or cellulitis, FROM without limitation, sensation intact, motor 5/5, +DPPT pulses ). Negative for: Edema, CALF TENDERNESS, Lamar's Sign, Tenderness, Swelling, Deformity Neurological: Positive for: GCS=15, CN II-XII Intact, Speech Normal, Motor Func Grossly Intact, Normal Cerebellar Funct, Gait Normal, Memory Normal, Other (Full body slight tremor noted) Skin: Positive for: Warm, Dry, Normal Color. Negative for: Rashes Psychiatric: Positive for: Alert, Oriented x 3, Normal Insight, Normal Concentration - Medications Active Medications: Active Medications Generic Name Dose Route Start Last Admin Trade Name Freq PRN Reason Stop Dose Admin Amlodipine Besylate 10 mg 07/07/18 12:15 07/08/18 09:41 Norvasc PO 10 mg DAILY EMILIANA Administration Aspirin 81 mg 07/07/18 10:00 07/08/18 09:40 Ecotrin PO 81 mg DAILY EMILIANA Administration Haloperidol 10 mg 07/07/18 11:15 07/07/18 18:12 Haldol PO 10 mg BID [facility] Administration Protocol Heparin Sodium/Sodium Chloride 25,000 units in 250 mls @ 17.309 mls/hr 07/06/18 20:28 07/07/18 14:27 Heparin 50208 Units/250ml 1/2 Normal Saline IV 13 units/kg/hr .[id number] PRN 12.501 mls/hr ADJUST RATE PER PROTOCOL Administration Protocol 18 UNITS/KG/HR Insulin Human Regular 0 units 07/07/18 07:30 07/08/18 08:24 Humulin R Med SC 5 unit ACHS [facility] Administration Protocol Lisinopril 10 mg 07/08/18 10:00 07/08/18 09:41 Zestril PO 10 mg DAILY [facility] Administration - Patient Studies Lab Studies: Microbiology Studies 07/06/18 23:26 MRSA Culture (Admit) - Final Naris MRSA NOT DETECTED Lab Studies 07/08/18 07/08/18 07/08/18 Range/Units 05:00 05:00 05:00 WBC 5.8 D (4.5-11.0) 10^3/uL RBC 4.73 (3.5-6.1) 10^6/uL Hgb 13.7 (12.0-16.0) g/dL Hct 41.6 (36.0-48.0) % MCV 87.9 (80.0-105.0) fl MCH 29.0 (25.0-35.0) pg MCHC 32.9 (31.0-37.0) g/dl RDW 12.5 (11.5-14.5) % Plt Count 351 (120.0-450.0) 10^3/uL MPV 9.1 (7.0-11.0) fl Neut % (Auto) 47.4 L (50.0-68.0) % Lymph % (Auto) 40.4 H (22.0-35.0) % [place] % (Auto) 6.4 H (1.0-6.0) % Eos % (Auto) 5.5 H (1.5-5.0) % Baso % (Auto) 0.3 (0.0-3.0) % Lymph # (Auto) 2.4 (1.2-3.4) [place] # (Auto) 0.4 (0.1-0.6) Eos # (Auto) 0.3 (0.0-0.7) Baso # (Auto) 0.02 (0.0-2.0) K/mm3 Absolute Neuts (auto) 2.76 (1.4-6.5) APTT 73.7 H (26.9-38.3) Seconds Sodium 139 (132-148) mmol/L Potassium 3.8 (3.6-5.0) mmol/L Chloride 102 (98-107) mmol/L Carbon Dioxide 26 (21-33) mmol/L Anion Gap 15 (10-20) BUN 10 (7-21) mg/dL Creatinine 0.6 L (0.7-1.2) mg/dl Est GFR ( Amer) > 60 Est GFR (Non-Af Amer) > 60 POC Glucose (mg/dL) (65-110) mg/dL Random Glucose 257 H (70-110) mg/dL Hemoglobin A1c (4.2-6.5) % Calcium 8.9 (8.4-10.5) mg/dL Phosphorus 4.1 (2.5-4.5) mg/dL Magnesium (1.7-2.2) mg/dL Total Bilirubin 0.5 (0.2-1.3) mg/dL AST 26 (14-36) U/L ALT 20 (7-56) U/L Alkaline Phosphatase 72 (38-126) U/L Total Protein 7.4 (5.8-8.3) g/dL Albumin 3.7 (3.0-4.8) g/dL Globulin 3.6 gm/dL Albumin/Globulin Ratio 1.0 L (1.1-1.8) 07/07/18 07/07/18 07/07/18 Range/Units 22:45 21:45 21:45 WBC (4.5-11.0) 10^3/uL RBC (3.5-6.1) 10^6/uL Hgb (12.0-16.0) g/dL Hct (36.0-48.0) % MCV (80.0-105.0) fl MCH (25.0-35.0) pg MCHC (31.0-37.0) g/dl RDW (11.5-14.5) % Plt Count (120.0-450.0) 10^3/uL MPV (7.0-11.0) fl Neut % (Auto) (50.0-68.0) % Lymph % (Auto) (22.0-35.0) % [place] % (Auto) (1.0-6.0) % Eos % (Auto) (1.5-5.0) % Baso % (Auto) (0.0-3.0) % Lymph # (Auto) (1.2-3.4) [place] # (Auto) (0.1-0.6) Eos # (Auto) (0.0-0.7) Baso # (Auto) (0.0-2.0) K/mm3 Absolute Neuts (auto) (1.4-6.5) APTT 66.2 H (26.9-38.3) Seconds Sodium (132-148) mmol/L Potassium (3.6-5.0) mmol/L Chloride (98-107) mmol/L Carbon Dioxide (21-33) mmol/L Anion Gap (10-20) BUN (7-21) mg/dL Creatinine (0.7-1.2) mg/dl Est GFR ( Amer) Est GFR (Non-Af Amer) POC Glucose (mg/dL) 318 H (65-110) mg/dL Random Glucose (70-110) mg/dL Hemoglobin A1c (4.2-6.5) % Calcium (8.4-10.5) mg/dL Phosphorus (2.5-4.5) mg/dL Magnesium 1.8 (1.7-2.2) mg/dL Total Bilirubin (0.2-1.3) mg/dL AST (14-36) U/L ALT (7-56) U/L Alkaline Phosphatase (38-126) U/L Total Protein (5.8-8.3) g/dL Albumin (3.0-4.8) g/dL Globulin gm/dL Albumin/Globulin Ratio (1.1-1.8) 07/07/18 07/07/18 07/07/18 Range/Units 18:15 16:00 11:27 WBC (4.5-11.0) 10^3/uL RBC (3.5-6.1) 10^6/uL Hgb (12.0-16.0) g/dL Hct (36.0-48.0) % MCV (80.0-105.0) fl MCH (25.0-35.0) pg MCHC (31.0-37.0) g/dl RDW (11.5-14.5) % Plt Count (120.0-450.0) 10^3/uL MPV (7.0-11.0) fl Neut % (Auto) (50.0-68.0) % Lymph % (Auto) (22.0-35.0) % [place] % (Auto) (1.0-6.0) % Eos % (Auto) (1.5-5.0) % Baso % (Auto) (0.0-3.0) % Lymph # (Auto) (1.2-3.4) [place] # (Auto) (0.1-0.6) Eos # (Auto) (0.0-0.7) Baso # (Auto) (0.0-2.0) K/mm3 Absolute Neuts (auto) (1.4-6.5) APTT 72.0 H (26.9-38.3) Seconds Sodium (132-148) mmol/L Potassium (3.6-5.0) mmol/L Chloride (98-107) mmol/L Carbon Dioxide (21-33) mmol/L Anion Gap (10-20) BUN (7-21) mg/dL Creatinine (0.7-1.2) mg/dl Est GFR ( Amer) Est GFR (Non-Af Amer) POC Glucose (mg/dL) 320 H 284 H (65-110) mg/dL Random Glucose (70-110) mg/dL Hemoglobin A1c (4.2-6.5) % Calcium (8.4-10.5) mg/dL Phosphorus (2.5-4.5) mg/dL Magnesium (1.7-2.2) mg/dL Total Bilirubin (0.2-1.3) mg/dL AST (14-36) U/L ALT (7-56) U/L Alkaline Phosphatase (38-126) U/L Total Protein (5.8-8.3) g/dL Albumin (3.0-4.8) g/dL Globulin gm/dL Albumin/Globulin Ratio (1.1-1.8) // Range/Units 22:56 WBC (4.5-11.0) 10^3/uL RBC (3.5-6.1) 10^6/uL Hgb (12.0-16.0) g/dL Hct (36.0-48.0) % MCV (80.0-105.0) fl MCH (25.0-35.0) pg MCHC (31.0-37.0) g/dl RDW (11.5-14.5) % Plt Count (120.0-450.0) 10^3/uL MPV (7.0-11.0) fl Neut % (Auto) (50.0-68.0) % Lymph % (Auto) (22.0-35.0) % [place] % (Auto) (1.0-6.0) % Eos % (Auto) (1.5-5.0) % Baso % (Auto) (0.0-3.0) % Lymph # (Auto) (1.2-3.4) [place] # (Auto) (0.1-0.6) Eos # (Auto) (0.0-0.7) Baso # (Auto) (0.0-2.0) K/mm3 Absolute Neuts (auto) (1.4-6.5) APTT (26.9-38.3) Seconds Sodium (132-148) mmol/L Potassium (3.6-5.0) mmol/L Chloride (98-107) mmol/L Carbon Dioxide (21-33) mmol/L Anion Gap (10-20) BUN (7-21) mg/dL Creatinine (0.7-1.2) mg/dl Est GFR ( Amer) Est GFR (Non-Af Amer) POC Glucose (mg/dL) (65-110) mg/dL Random Glucose (70-110) mg/dL Hemoglobin A1c 11.6 H (4.2-6.5) % Calcium (8.4-10.5) mg/dL Phosphorus (2.5-4.5) mg/dL Magnesium (1.7-2.2) mg/dL Total Bilirubin (0.2-1.3) mg/dL AST (14-36) U/L ALT (7-56) U/L Alkaline Phosphatase (38-126) U/L Total Protein (5.8-8.3) g/dL Albumin (3.0-4.8) g/dL Globulin gm/dL Albumin/Globulin Ratio (1.1-1.8) Laboratory Results - last 24 hr 07/06/18 07/07/18 07/07/18 22:56 11:27 16:00 WBC RBC Hgb Hct MCV MCH MCHC RDW Plt Count MPV Neut % (Auto) Lymph % (Auto) [place] % (Auto) Eos % (Auto) Baso % (Auto) Lymph # (Auto) [place] # (Auto) Eos # (Auto) Baso # (Auto) Absolute Neuts (auto) APTT 72.0 H Sodium Potassium Chloride Carbon Dioxide Anion Gap BUN Creatinine Est GFR ( Amer) Est GFR (Non-Af Amer) POC Glucose (mg/dL) 284 H Random Glucose Hemoglobin A1c 11.6 H Calcium Phosphorus Magnesium Total Bilirubin AST ALT Alkaline Phosphatase Total Protein Albumin Globulin Albumin/Globulin Ratio 07/07/18 07/07/18 07/07/18 18:15 21:45 21:45 WBC RBC Hgb Hct MCV MCH MCHC RDW Plt Count MPV Neut % (Auto) Lymph % (Auto) [place] % (Auto) Eos % (Auto) Baso % (Auto) Lymph # (Auto) [place] # (Auto) Eos # (Auto) Baso # (Auto) Absolute Neuts (auto) APTT 66.2 H Sodium Potassium Chloride Carbon Dioxide Anion Gap BUN Creatinine Est GFR ( Amer) Est GFR (Non-Af Amer) POC Glucose (mg/dL) 320 H Random Glucose Hemoglobin A1c Calcium Phosphorus Magnesium 1.8 Total Bilirubin AST ALT Alkaline Phosphatase Total Protein Albumin Globulin Albumin/Globulin Ratio 07/07/18 07/08/18 07/08/18 22:45 05:00 05:00 WBC 5.8 D RBC 4.73 Hgb 13.7 Hct 41.6 MCV 87.9 MCH 29.0 MCHC 32.9 RDW 12.5 Plt Count 351 MPV 9.1 Neut % (Auto) 47.4 L Lymph % (Auto) 40.4 H [place] % (Auto) 6.4 H Eos % (Auto) 5.5 H Baso % (Auto) 0.3 Lymph # (Auto) 2.4 [place] # (Auto) 0.4 Eos # (Auto) 0.3 Baso # (Auto) 0.02 Absolute Neuts (auto) 2.76 APTT Sodium 139 Potassium 3.8 Chloride 102 Carbon Dioxide 26 Anion Gap 15 BUN 10 Creatinine 0.6 L Est GFR ( Amer) > 60 Est GFR (Non-Af Amer) > 60 POC Glucose (mg/dL) 318 H Random Glucose 257 H Hemoglobin A1c Calcium 8.9 Phosphorus 4.1 Magnesium Total Bilirubin 0.5 AST 26 ALT 20 Alkaline Phosphatase 72 Total Protein 7.4 Albumin 3.7 Globulin 3.6 Albumin/Globulin Ratio 1.0 L 07/08/18 05:00 WBC RBC Hgb Hct MCV MCH MCHC RDW Plt Count MPV Neut % (Auto) Lymph % (Auto) [place] % (Auto) Eos % (Auto) Baso % (Auto) Lymph # (Auto) [place] # (Auto) Eos # (Auto) Baso # (Auto) Absolute Neuts (auto) APTT 73.7 H Sodium Potassium Chloride Carbon Dioxide Anion Gap BUN Creatinine Est GFR ( Amer) Est GFR (Non-Af Amer) POC Glucose (mg/dL) Random Glucose Hemoglobin A1c Calcium Phosphorus Magnesium Total Bilirubin AST ALT Alkaline Phosphatase Total Protein Albumin Globulin Albumin/Globulin Ratio EKG/Cardiology Studies: Cardiology / EKG Studies 07/08/18 EKG [ELECTROCARDIOGRAM] Urgent Comment: Reason For Exam: prolong QTc Fingerstick Blood Sugar Results: 252 Review of Systems - Review of Systems Review of Systems: 12 point ROS completed and negative except as described in HPI. Critical Care Progress Note - Nutrition Nutrition: Nutrition Category Date Time Status Heart Healthy Diet [DIET] Diets 07/07/18 Breakfast Active Assessment/Plan - Assessment and Plan (Free Text) Assessment: 53 F with a history of hypertension and shizophrenia presenting with lower leg muscle cramping found to have a DVT and submassive R sided pulmonary embolism. [facility] pharmacy was called and medications were reconciled. Patient hemodynamically stable, in no respiratory distress. Plan: Neurologic/psych -AAO x3 -Hold home Haldol 10 mg BID in light of prolonged QT at this time, f/u repeat EKG -Continue to monitor Cadiovascular -Lower Extremity DVT and Central Pulmonary embolism with RV strain -Continue Lisinopril 10mg and Amlodipine 10 mg daily for HTN control, previously on no home meds for hypertension -Maintain MAP >65 -Avoid hypotension -Continue with heparin drip and aspirin -troponin 0.09, 0.12, 0.10 -Prolonged QT, f/u repeat EKG -07/07 Echo shows LVEF 48%, RVSP 42, severe concentric LVH -Lipid panel WNL -Cardiology on Consult- Dr. Weems Hematological -Lower Extremity DVT and Central Pulmonary embolism with RV strain -Continue with Heparin drip -Consider outpatient coagulopathy workup -AM PTT elevated in light of Hepain drip, continue to monitor -Hem consult - Dr. Owen - recs appreciated Pulmonary -Lower Extremity DVT and Central Pulmonary embolism with RV strain -Maintain O2 sat >92% -Continue with Heparin drip -IR consulted- Dr. Hopper Endocrine -History of DM for which patient does not take medications -TSH 2.84 -Uncontrolled DM with HgA1C 11.3 -Insulin sliding scale changed to high coverage -continues with fingersticks qACHS -Maintain euglycemia and normothermia GI -Recommend o/p scans for ? malignancy as etiology for PE Renal -Maintain euvolemia -HypoK repleted this AM -Replete electrolytes as needed DVT ppx: Hep drip Patient seen, case reviewed and plan approved by Dr. Edwina Beaulieu. Agusto Fam,PGY-1 <Jodee Beaulieu - Last Filed: 07/08/18 16:45> CCU Objective - Vital Signs / Intake & Output Vital Signs (Last 4 hours): Vital Signs Temp Pulse Resp BP Pulse Ox 07/08/18 15:10 74 25 H 99 07/08/18 15:00 73 13 138/90 77 L 07/08/18 14:50 77 19 97 07/08/18 14:40 73 13 98 07/08/18 14:30 71 60 H 98 07/08/18 14:20 75 25 H 97 07/08/18 14:10 72 19 100 07/08/18 14:00 97.6 F 134/76 07/08/18 13:59 71 18 97 07/08/18 13:50 74 19 93 L 07/08/18 13:40 69 23 95 07/08/18 13:30 67 21 97 07/08/18 13:20 75 19 97 07/08/18 13:10 70 18 97 07/08/18 13:00 70 16 142/88 94 L 07/08/18 12:50 71 18 97 Intake and Output (Last 8hrs): Intake & Output 07/08/18 07/08/18 07/08/18 06:59 14:59 22:59 Intake Total 1473 250 Output Total 1100 Balance 373 250 Intake: IV 1473 250 Cardene 960 Heparin 150 Oral 0 Tube Feeding 0 TPN/PPN 0 Blood Product 0 Lipid 0 Albumin 0 Other 0 Output: Urine 1100 Urine, Voided 1100 Stool 0 Urine/Stool Mix 0 Emesis 0 Oral Regurgitation 0 Other 0 Other: # Voids Urine, Voided 2 # Bowel Movements 0 - Medications Active Medications: Active Medications Generic Name Dose Route Start Last Admin Trade Name Freq PRN Reason Stop Dose Admin Amlodipine Besylate 10 mg 07/07/18 12:15 07/08/18 09:41 Norvasc PO 10 mg DAILY EMILIANA Administration Aspirin 81 mg 07/07/18 10:00 07/08/18 09:40 Ecotrin PO 81 mg DAILY [facility] Administration Haloperidol 10 mg 07/07/18 11:15 07/07/18 18:12 Haldol PO 10 mg BID [facility] Administration Protocol Heparin Sodium/Sodium Chloride 25,000 units in 250 mls @ 17.309 mls/hr 07/06/18 20:28 07/08/18 11:45 Heparin 46584 Units/250ml 1/2 Normal Saline IV 13 units/kg/hr .[id number] PRN 12.501 mls/hr ADJUST RATE PER PROTOCOL Administration Protocol 18 UNITS/KG/HR Insulin Human Regular 0 units 07/08/18 11:30 07/08/18 11:36 Humulin R High SC 12 unit ACHS [facility] Administration Protocol Lisinopril 10 mg 07/08/18 10:00 07/08/18 09:41 Zestril PO 10 mg DAILY [facility] Administration - Patient Studies Lab Studies: Microbiology Studies 07/06/18 23:26 MRSA Culture (Admit) - Final Naris MRSA NOT DETECTED Lab Studies 07/08/18 07/08/18 07/08/18 Range/Units 11:15 05:00 05:00 WBC (4.5-11.0) 10^3/uL RBC (3.5-6.1) 10^6/uL Hgb (12.0-16.0) g/dL Hct (36.0-48.0) % MCV (80.0-105.0) fl MCH (25.0-35.0) pg MCHC (31.0-37.0) g/dl RDW (11.5-14.5) % Plt Count (120.0-450.0) 10^3/uL MPV (7.0-11.0) fl Neut % (Auto) (50.0-68.0) % Lymph % (Auto) (22.0-35.0) % [place] % (Auto) (1.0-6.0) % Eos % (Auto) (1.5-5.0) % Baso % (Auto) (0.0-3.0) % Lymph # (Auto) (1.2-3.4) [place] # (Auto) (0.1-0.6) Eos # (Auto) (0.0-0.7) Baso # (Auto) (0.0-2.0) K/mm3 Absolute Neuts (auto) (1.4-6.5) APTT 73.7 H (26.9-38.3) Seconds Sodium 139 (132-148) mmol/L Potassium 3.8 (3.6-5.0) mmol/L Chloride 102 (98-107) mmol/L Carbon Dioxide 26 (21-33) mmol/L Anion Gap 15 (10-20) BUN 10 (7-21) mg/dL Creatinine 0.6 L (0.7-1.2) mg/dl Est GFR ( Amer) > 60 Est GFR (Non-Af Amer) > 60 POC Glucose (mg/dL) 361 H (65-110) mg/dL Random Glucose 257 H (70-110) mg/dL Hemoglobin A1c (4.2-6.5) % Calcium 8.9 (8.4-10.5) mg/dL Phosphorus 4.1 (2.5-4.5) mg/dL Magnesium (1.7-2.2) mg/dL Total Bilirubin 0.5 (0.2-1.3) mg/dL AST 26 (14-36) U/L ALT 20 (7-56) U/L Alkaline Phosphatase 72 (38-126) U/L Total Protein 7.4 (5.8-8.3) g/dL Albumin 3.7 (3.0-4.8) g/dL Globulin 3.6 gm/dL Albumin/Globulin Ratio 1.0 L (1.1-1.8) 07/08/18 07/07/18 07/07/18 Range/Units 05:00 22:45 21:45 WBC 5.8 D (4.5-11.0) 10^3/uL RBC 4.73 (3.5-6.1) 10^6/uL Hgb 13.7 (12.0-16.0) g/dL Hct 41.6 (36.0-48.0) % MCV 87.9 (80.0-105.0) fl MCH 29.0 (25.0-35.0) pg MCHC 32.9 (31.0-37.0) g/dl RDW 12.5 (11.5-14.5) % Plt Count 351 (120.0-450.0) 10^3/uL MPV 9.1 (7.0-11.0) fl Neut % (Auto) 47.4 L (50.0-68.0) % Lymph % (Auto) 40.4 H (22.0-35.0) % [place] % (Auto) 6.4 H (1.0-6.0) % Eos % (Auto) 5.5 H (1.5-5.0) % Baso % (Auto) 0.3 (0.0-3.0) % Lymph # (Auto) 2.4 (1.2-3.4) [place] # (Auto) 0.4 (0.1-0.6) Eos # (Auto) 0.3 (0.0-0.7) Baso # (Auto) 0.02 (0.0-2.0) K/mm3 Absolute Neuts (auto) 2.76 (1.4-6.5) APTT 66.2 H (26.9-38.3) Seconds Sodium (132-148) mmol/L Potassium (3.6-5.0) mmol/L Chloride (98-107) mmol/L Carbon Dioxide (21-33) mmol/L Anion Gap (10-20) BUN (7-21) mg/dL Creatinine (0.7-1.2) mg/dl Est GFR ( Amer) Est GFR (Non-Af Amer) POC Glucose (mg/dL) 318 H (65-110) mg/dL Random Glucose (70-110) mg/dL Hemoglobin A1c (4.2-6.5) % Calcium (8.4-10.5) mg/dL Phosphorus (2.5-4.5) mg/dL Magnesium (1.7-2.2) mg/dL Total Bilirubin (0.2-1.3) mg/dL AST (14-36) U/L ALT (7-56) U/L Alkaline Phosphatase (38-126) U/L Total Protein (5.8-8.3) g/dL Albumin (3.0-4.8) g/dL Globulin gm/dL Albumin/Globulin Ratio (1.1-1.8) 07/07/18 07/07/18 07/06/18 Range/Units 21:45 18:15 22:56 WBC (4.5-11.0) 10^3/uL RBC (3.5-6.1) 10^6/uL Hgb (12.0-16.0) g/dL Hct (36.0-48.0) % MCV (80.0-105.0) fl MCH (25.0-35.0) pg MCHC (31.0-37.0) g/dl RDW (11.5-14.5) % Plt Count (120.0-450.0) 10^3/uL MPV (7.0-11.0) fl Neut % (Auto) (50.0-68.0) % Lymph % (Auto) (22.0-35.0) % [place] % (Auto) (1.0-6.0) % Eos % (Auto) (1.5-5.0) % Baso % (Auto) (0.0-3.0) % Lymph # (Auto) (1.2-3.4) [place] # (Auto) (0.1-0.6) Eos # (Auto) (0.0-0.7) Baso # (Auto) (0.0-2.0) K/mm3 Absolute Neuts (auto) (1.4-6.5) APTT (26.9-38.3) Seconds Sodium (132-148) mmol/L Potassium (3.6-5.0) mmol/L Chloride (98-107) mmol/L Carbon Dioxide (21-33) mmol/L Anion Gap (10-20) BUN (7-21) mg/dL Creatinine (0.7-1.2) mg/dl Est GFR ( Amer) Est GFR (Non-Af Amer) POC Glucose (mg/dL) 320 H (65-110) mg/dL Random Glucose (70-110) mg/dL Hemoglobin A1c 11.6 H (4.2-6.5) % Calcium (8.4-10.5) mg/dL Phosphorus (2.5-4.5) mg/dL Magnesium 1.8 (1.7-2.2) mg/dL Total Bilirubin (0.2-1.3) mg/dL AST (14-36) U/L ALT (7-56) U/L Alkaline Phosphatase (38-126) U/L Total Protein (5.8-8.3) g/dL Albumin (3.0-4.8) g/dL Globulin gm/dL Albumin/Globulin Ratio (1.1-1.8) Laboratory Results - last 24 hr 07/06/18 07/07/18 07/07/18 22:56 18:15 21:45 WBC RBC Hgb Hct MCV MCH MCHC RDW Plt Count MPV Neut % (Auto) Lymph % (Auto) [place] % (Auto) Eos % (Auto) Baso % (Auto) Lymph # (Auto) [place] # (Auto) Eos # (Auto) Baso # (Auto) Absolute Neuts (auto) APTT Sodium Potassium Chloride Carbon Dioxide Anion Gap BUN Creatinine Est GFR ( Amer) Est GFR (Non-Af Amer) POC Glucose (mg/dL) 320 H Random Glucose Hemoglobin A1c 11.6 H Calcium Phosphorus Magnesium 1.8 Total Bilirubin AST ALT Alkaline Phosphatase Total Protein Albumin Globulin Albumin/Globulin Ratio 07/07/18 07/07/18 07/08/18 21:45 22:45 05:00 WBC 5.8 D RBC 4.73 Hgb 13.7 Hct 41.6 MCV 87.9 MCH 29.0 MCHC 32.9 RDW 12.5 Plt Count 351 MPV 9.1 Neut % (Auto) 47.4 L Lymph % (Auto) 40.4 H [place] % (Auto) 6.4 H Eos % (Auto) 5.5 H Baso % (Auto) 0.3 Lymph # (Auto) 2.4 [place] # (Auto) 0.4 Eos # (Auto) 0.3 Baso # (Auto) 0.02 Absolute Neuts (auto) 2.76 APTT 66.2 H Sodium Potassium Chloride Carbon Dioxide Anion Gap BUN Creatinine Est GFR ( Amer) Est GFR (Non-Af Amer) POC Glucose (mg/dL) 318 H Random Glucose Hemoglobin A1c Calcium Phosphorus Magnesium Total Bilirubin AST ALT Alkaline Phosphatase Total Protein Albumin Globulin Albumin/Globulin Ratio 07/08/18 07/08/18 07/08/18 05:00 05:00 11:15 WBC RBC Hgb Hct MCV MCH MCHC RDW Plt Count MPV Neut % (Auto) Lymph % (Auto) [place] % (Auto) Eos % (Auto) Baso % (Auto) Lymph # (Auto) [place] # (Auto) Eos # (Auto) Baso # (Auto) Absolute Neuts (auto) APTT 73.7 H Sodium 139 Potassium 3.8 Chloride 102 Carbon Dioxide 26 Anion Gap 15 BUN 10 Creatinine 0.6 L Est GFR ( Amer) > 60 Est GFR (Non-Af Amer) > 60 POC Glucose (mg/dL) 361 H Random Glucose 257 H Hemoglobin A1c Calcium 8.9 Phosphorus 4.1 Magnesium Total Bilirubin 0.5 AST 26 ALT 20 Alkaline Phosphatase 72 Total Protein 7.4 Albumin 3.7 Globulin 3.6 Albumin/Globulin Ratio 1.0 L EKG/Cardiology Studies: Cardiology / EKG Studies 07/08/18 EKG [ELECTROCARDIOGRAM] Urgent Comment: Reason For Exam: prolong QTc Critical Care Progress Note - Nutrition Nutrition: Nutrition Category Date Time Status Heart Healthy Diet [DIET] Diets 07/07/18 Breakfast Active Addendum Addendum: 07/08/18 16:42 MICU Attending addendum Patient seen and examined with housestaff Agree with resident note above with the follow add/exceptions 53 F with a history of hypertension and shizophrenia presenting with lower leg muscle cramping found to have a DVT and large right segmental PE. Not hypotensive but evidence of rv strain and slight elevated TNI. Not indicated for tpa Cont heparin for now echo does not show significant compromise of RV Unclear etio of DVT/PE however she does not have medical follow up and has never had routine screening such as mammo, pap or colonscopy. Will need to have workup outpatient. would check CT abd/pelvis to look for mass yesterday BP was elevated, required cardene however improved now that she is on PO lisinopril diabetic care, insulin, education ok to transfer to tele eventually transition to PO DOAC FULL CODE Rest of care as per above resident note Jodee Beaulieu MD MICU Attending
[2018-07-08] MEDS: Insulin Reg-HIGH-Coverage SC SCH ×3 (11:36→21:50)
[2018-07-08] MEDS: Heparin 25,000units in 1/2NS /250 ML BAG IV PRN (11:45)
--- NOTE | 2018-07-08 18:13 | CARD ---
APPROVED REPORT Date of service: 07/08/2018 EKG Measurement Heart [id number] <Conclusion> Normal sinus rhythm Possible Left atrial enlargement T wave abnormality, consider anterolateral ischemia Prolonged QT Abnormal ECG
[2018-07-09 06:44] LABS: BASO # 0.03 K/mm3 (0.0-2.0); BASO % 0.5 % (0.0-3.0); EOS # 0.4 (0.0-0.7); EOS % 7.9 % (1.5-5.0); HEMOGLOBIN 13.2 g/dL (12.0-16.0); LYMPH # 2.6 (1.2-3.4); LYMPH % 45.8 % (22.0-35.0); MEAN CELL VOLUME 88.9 fl (80.0-105.0); MEAN CORPUSCULAR HEMOGLOBIN 28.8 pg (25.0-35.0); MEAN CORPUSCULAR HGB CONC 32.4 g/dl (31.0-37.0); MEAN PLATELET VOLUME 9.1 fl (7.0-11.0); MONO # 0.4 (0.1-0.6); MONO % 7.9 % (1.0-6.0); RBC 4.58 10^6/uL (3.5-6.1); RED CELL DISTRIBUTION WIDTH 12.8 % (11.5-14.5); WHITE BLOOD COUNT 5.6 10^3/uL (4.5-11.0)
[2018-07-09 07:00] LABS: ALBUMIN 3.4 g/dL (3.0-4.8); ALT/SGPT 19 U/L (7-56); AST/SGOT 17 U/L (14-36); BLOOD UREA NITROGEN 19 mg/dL (7-21); CALCIUM 9.1 mg/dL (8.4-10.5); GFR NON-AFRICAN AMERICAN > 60
[2018-07-09] MEDS: Insulin Reg-HIGH-Coverage SC SCH ×4 (07:58→22:33)
[2018-07-09] MEDS ORDERED: Insulin Detemir 100 units/ml Vial (Levemir) SC ONE (09:42)
--- NOTE | 2018-07-09 11:10 | US ---
PROCEDURE: Left lower extremity venous US HISTORY: Leg pain and swelling. Evaluate for DVT. PHYSICIAN(S): Ross Hopper MD. TECHNIQUE: Duplex sonography and color-flow Doppler with graded compression were used to evaluate the deep venous system of the left lower extremity. The exam is somewhat limited by body habitus and edema. FINDINGS: There is acute, hypoechoic, occlusive thrombus noted in the left femoral vein, left popliteal vein, and visualized left tibial veins. The left common femoral vein is patent and compressible. IMPRESSION: 1. Acute extensive left lower extremity DVT involving the left femoral vein, popliteal vein, and visualized tibial veins.
--- NOTE | 2018-07-09 11:53 | CP.PCM.APN ---
Subjective - Date & Time of Evaluation Date of Evaluation: 07/09/18 Time of Evaluation: 09:45 - Subjective Subjective: pt seen and examined at bedside, pt in NAD pt reports feeling better, discuss plan with pt regarding working with P.T, pt amenable. pt with no complaints at this time Review of Systems - Constitutional Constitutional: As Per HPI Objective - Vital Signs/Intake and Output Vital Signs (last 24 hours): Temp Pulse Resp BP Pulse Ox 98.3 F 73 19 136/84 98 07/09/18 06:00 07/09/18 09:27 07/09/18 06:00 07/09/18 09:27 07/09/18 06:00 Intake and Output: 07/09/18 07/09/18 06:59 18:59 Intake Total 390 Output Total 400 Balance -10 - Medications Medications: Current Medications Amlodipine Besylate (Norvasc) 10 mg PO DAILY [facility] Last Admin: 07/09/18 09:27 Dose: 10 mg Apixaban (Eliquis) 10 mg PO BID [facility]; Protocol Stop: 07/15/18 18:01 Last Admin: 07/09/18 11:25 Dose: 10 mg Aspirin (Ecotrin) 81 mg PO DAILY [facility] Last Admin: 07/09/18 09:27 Dose: 81 mg Atorvastatin Calcium (Lipitor) 40 mg PO DIN [facility] Glimepiride (Amaryl) 4 mg PO DAILY [facility] Last Admin: 07/09/18 09:27 Dose: 4 mg Haloperidol (Haldol) 10 mg PO BID [facility]; Protocol Last Admin: 07/07/18 18:12 Dose: 10 mg Insulin Detemir (Levemir) [address] [facility] Insulin Human Regular (Humulin R High) 0 units SC [facility]; Protocol Last Admin: 07/09/18 11:24 Dose: 7 units Lisinopril (Zestril) 10 mg PO DAILY [facility] Last Admin: 07/09/18 09:27 Dose: 10 mg - Labs Labs: 07/09/18 06:30 07/09/18 06:30 PT 14.2 SECONDS (9.4-12.5) H 07/06/18 20:11 INR 1.28 07/06/18 20:11 APTT 58.5 Seconds (26.9-38.3) H 07/09/18 06:30 - Constitutional Appears: No Acute Distress - ENT Exam ENT Exam: Mucous Membranes Moist - Respiratory Exam Respiratory Exam: Decreased Breath Sounds, NORMAL BREATHING PATTERN - Cardiovascular Exam Cardiovascular Exam: +S1, +S2 - Neurological Exam Neurological Exam: Alert, Awake, Oriented x3 Additional comments: KEITH, tremors noted bilat upper ext Assessment and Plan - Assessment and Plan (Free Text) Plan: ITS Impressions Extremity Ultrasound 07/06/18 19:12 IMPRESSION: 1. Acute extensive left lower extremity DVT involving the left femoral vein, popliteal vein, and visualized tibial veins. D-Dimer, Quantitative 1332 ng/mlDDU (0-243) H 07/06/18 20:11 ITS Impressions Extremity Ultrasound 07/06/18 19:12 IMPRESSION: 1. Acute extensive left lower extremity DVT involving the left femoral vein, popliteal vein, and visualized tibial veins. Chest CT 07/06/18 20:04 IMPRESSION: There is a large embolus in the right main pulmonary artery and segmental branches. There is mild enlargement of the right ventricle a/p 53 yr old AA female with pmh sig for dm, htn and schizophrenia on Haldol admitted with c/o gen shaking and found to have elevated dimer, large right main pulmonary embolus /PE and acute left LE DVT now undergoing treatment. Pt with IR, cardiology and hematology eval pt is s/p IV heparin and on Ecotrin and Eliquis regimen. Pt with ECHO showing normal LV. PMD, plan for P.T eval and treatment. discuss with patient at bedside. will follow cardio, IR and heme/onc recs. BPCI/TIC - BPCIA/TIC Educated pt/family on BPCIA/CIR/Med to Bed Programs: N/A Flyers given, including [facility] Beneficiary letter: N/A Pt/family verbalized understanding & agreed to program: N/A
--- NOTE | 2018-07-09 13:27 | CP.PCM.PN ---
<Hiram Hanson - Last Filed: 07/09/18 13:18> Subjective - Date & Time of Evaluation Date of Evaluation: 07/09/18 Time of Evaluation: 07:00 - Subjective Subjective: Hiram Hanson D.O. PGY-3, Internal Medicine Resident, Dr. Urbina's Service, Progress Note 53-year-old female with a past medical history of hypertension and since plaints of left lower extremity pain and spasms who was found to have a large pulmonary embolism and acute left lower extremity DVT. Patient was seen and examined at bedside. Patient is in good spirits. Patient states that she has not gotten up around because of all the IVs and oxygen. Otherwise states that she is usually ambulatory. Objective - Vital Signs/Intake and Output Vital Signs (last 24 hours): Temp Pulse Resp BP Pulse Ox 98.3 F 64 19 136/84 98 07/09/18 06:00 07/09/18 10:00 07/09/18 06:00 07/09/18 09:27 07/09/18 06:00 Intake and Output: 07/09/18 07/09/18 06:59 18:59 Intake Total 390 Output Total 400 Balance -10 - Medications Medications: Current Medications Amlodipine Besylate (Norvasc) 10 mg PO DAILY [facility] Last Admin: 07/09/18 09:27 Dose: 10 mg Apixaban (Eliquis) 10 mg PO BID [facility]; Protocol Stop: 07/15/18 18:01 Last Admin: 07/09/18 11:25 Dose: 10 mg Aspirin (Ecotrin) 81 mg PO DAILY [facility] Last Admin: 07/09/18 09:27 Dose: 81 mg Atorvastatin Calcium (Lipitor) 40 mg PO DIN [facility] Glimepiride (Amaryl) 4 mg PO DAILY [facility] Last Admin: 07/09/18 09:27 Dose: 4 mg Haloperidol (Haldol) 10 mg PO BID [facility]; Protocol Last Admin: 07/07/18 18:12 Dose: 10 mg Insulin Detemir (Levemir) 8 unit SC [facility] Insulin Human Regular (Humulin R High) 0 units SC [facility]; Protocol Last Admin: 07/09/18 11:24 Dose: 7 units Lisinopril (Zestril) 10 mg PO DAILY [facility] Last Admin: 07/09/18 09:27 Dose: 10 mg - Labs Labs: 05/20/19 06:30 07/09/18 06:30 PT 14.2 SECONDS (9.4-12.5) H 07/06/18 20:11 INR 1.28 07/06/18 20:11 APTT 58.5 Seconds (26.9-38.3) H 07/09/18 06:30 - Constitutional Appears: Non-toxic, No Acute Distress - Head Exam Head Exam: ATRAUMATIC, NORMOCEPHALIC - Eye Exam Eye Exam: EOMI. absent: Scleral icterus - ENT Exam ENT Exam: Mucous Membranes Moist, Normal Oropharynx - Respiratory Exam Respiratory Exam: Clear to Ausculation Bilateral. absent: Rhonchi, Wheezes - Cardiovascular Exam Cardiovascular Exam: RRR, +S1, +S2. absent: Gallop, Rubs - GI/Abdominal Exam GI & Abdominal Exam: Soft. absent: Distended, Tenderness - Extremities Exam Extremities Exam: Calf Tenderness - Neurological Exam Neurological Exam: Alert, Awake, Oriented x3 - Skin Skin Exam: Dry, Warm Assessment and Plan - Assessment and Plan (Free Text) Assessment: 53-year-old female with a past medical history of hypertension and since plaints of left lower extremity pain and spasms who was found to have a large pulmonary embolism and acute left lower extremity DVT. Plan: 1. Unprovoked right main pulmonary embolus 2. Unprovoked acute left lower extremity DVT 3. Right ventricular strain 4. Hypertension 5. Diabetes mellitus, uncontrolled Patient's heparin drip will be discontinued. Patient will be transitioned to apixaban 10 mg p.o. twice daily for 1 week and then 5 mg p.o. twice daily. Given unprovoked nature of clots hematology/oncology has been consulted. Pending evaluation. Hypercoagulability work-up has been ordered. This includes Antithrombin III antigen, activity, cardiolipin antibody, factor V Leiden mutati on, lupus anticoagulant, antiphospholipid antibody. Given that she has uncontrolled diabetes and hypertension and her LDL is above 100 we will start the patient on moderate intensity statin with atorvastatin 40 mg. Patient is also been started on glimepiride and Levemir 8 before breakfast and after dinner for her diabetes as well as we will continue with regular insulin sliding scale. For hypertension she is on lisinopril and amlodipine and she has been better controlled. For her schizophrenia she is doing well on haloperidol which we will continue at this time. Had an extensive discussion about the patient's current status and prognosis with daughter Nevaeh Servin at [phone] per patient's request. All questions welcomed and answered. Physical therapy to evaluate the patient's. Patient was seen and examined and case was discussed extensively with attending physician. <Israel Urbina - Last Filed: 07/09/18 18:03> Objective - Vital Signs/Intake and Output Vital Signs (last 24 hours): Temp Pulse Resp BP Pulse Ox 97.2 F L 81 19 122/77 94 L 07/09/18 17:37 07/09/18 17:39 07/09/18 17:37 07/09/18 17:37 07/09/18 12:00 Intake and Output: 07/09/18 07/09/18 06:59 18:59 Intake Total 390 Output Total 400 Balance -10 - Medications Medications: Current Medications Amlodipine Besylate (Norvasc) 10 mg PO DAILY [facility] Last Admin: 07/09/18 09:27 Dose: 10 mg Apixaban (Eliquis) 10 mg PO BID [facility]; Protocol Stop: 07/15/18 18:01 Last Admin: 07/09/18 17:25 Dose: 10 mg Aspirin (Ecotrin) 81 mg PO DAILY [facility] Last Admin: 07/09/18 09:27 Dose: 81 mg Atorvastatin Calcium (Lipitor) 40 mg PO DIN [facility] Last Admin: 07/09/18 17:25 Dose: 40 mg Glimepiride (Amaryl) 4 mg PO DAILY [facility] Last Admin: 07/09/18 09:27 Dose: 4 mg Haloperidol (Haldol) 10 mg PO BID [facility]; Protocol Last Admin: 07/09/18 17:38 Dose: 10 mg Insulin Detemir (Levemir) 8 unit SC [facility] Insulin Human Regular (Humulin R High) 0 units SC [facility]; Protocol Last Admin: 07/09/18 17:26 Dose: Not Given Lisinopril (Zestril) 10 mg PO DAILY [facility] Last Admin: 07/09/18 09:27 Dose: 10 mg - Labs Labs: 07/09/18 06:30 07/09/18 06:30 PT 14.2 SECONDS (9.4-12.5) H 07/06/18 20:11 INR 1.28 07/06/18 20:11 APTT 58.5 Seconds (26.9-38.3) H 07/09/18 06:30 Assessment and Plan - Assessment and Plan (Free Text) Plan: Pt seen and examined by me. I have reviewed the note of the medical education manager and I agree with it. I have discussed the assessment and plan with the resident. I have reviewed the medications and the last labs.
--- NOTE | 2018-07-09 19:35 | CON ---
DATE: 07/09/2018 CONSULTATION REQUESTED BY: Dr. Brown. REASON FOR CONSULTATION: DVT, pulmonary embolism. HISTORY OF PRESENT ILLNESS: Ms. Cotter is a 53-year-old female admitted to the hospital with shortness of breath for past one week and pain in the left leg. She was found to have extensive DVT in the left leg in the femoral and tibial veins. CAT scan of the chest with PE protocol showed large obstructing thrombosis in the right main pulmonary artery. She does not have a primary care physician. She sees only psychiatrist. No history of recent travel. No history of nausea or vomiting. No history of abdominal pain. She has past medical history of schizophrenia, taking Haldol. Denies any shortness of breath. No known hemoptysis. No leg swelling or pain. PAST MEDICAL HISTORY: Schizophrenia and hypertension. PAST SURGICAL HISTORY: None. FAMILY HISTORY: Noncontributory. SOCIAL HISTORY: Brought to the hospital by daughter. She lives by herself. REVIEW OF SYSTEMS: As per HPI. Rest of 12-point review of system reviewed and negative. PHYSICAL EXAMINATION: GENERAL: Comfortable in bed, in no acute distress. VITAL SIGNS: Temperature 98.7, heart rate 80 per minute and blood pressure 150/80. HEENT: No pallor. NECK: No lymphadenopathy. CHEST: Air entry present and equal bilateral. No added sounds. CARDIOVASCULAR: S1 and S2, normal. No murmur or gallop. ABDOMEN: Soft and nontender. No hepatosplenomegaly. EXTREMITIES: No edema. No clubbing. CENTRAL NERVOUS SYSTEM: Alert and oriented x3. No focal, sensory, or motor deficits. Spine nontender. LABORATORY DATA: White count 5.6, hemoglobin 13.2, hematocrit 40.7 and platelet 366. Sodium 138, potassium 3.8, creatinine 0.8, calcium 9.1 and phosphorous 4.7. Imaging as per HPI. CURRENT MEDICATIONS: Amlodipine 10 mg daily, Eliquis 10 mg p.o. b.i.d., aspirin 81 mg daily, Lipitor 40 mg daily, Amaryl 4 mg daily, Haldol 10 mg p.o. b.i.d., insulin and lisinopril 10 mg daily. ASSESSMENT: 1. Hypercoagulable state. 2. Right pulmonary embolism. 3. Left leg deep venous thrombosis femoral and tibial vein. PLAN: She was on heparin drug for few days, currently on Eliquis 10 mg p.o. b.i.d. I would recommend continuing Eliquis. Risks of anticoagulation discussed with her including the major head bleed. Hypercoagulable workup pending. She had unprovoked pulmonary embolism and deep venous thrombosis, probably she might need life long anticoagulation. Hypercoaguable work up will help in deciding the duration of anticoagulation. discussed with her that she need regular followup with PCP or fish cleaner which she agreed. She has uncontrolled hypertension, was started on lisinopril and Norvasc. Echocardiogram did not show significant right ventricular strain, there is mild tricuspid regurgitation and mild pulmonary hypertension. Thank you Dr. Brown for allowing us to participate in Ms. Jill Cotter's care. Carrol Owen MD [facility]
--- NOTE | 2018-07-09 20:55 | PN ---
DATE: 07/09/2018 The patient was seen and examined. I do agree with the note of the medical service representative. I was involved in the plan of care. The patient had a Duplex ultrasound of the left leg. There was an acute extensive left lower extremity DVT involving the left femoral vein and popliteal vein. She has been on anticoagulation. The patient is going to be changed over to Eliquis for oral anticoagulation. She is on Lipitor because of dyslipidemia from her diabetes. The patient is on amlodipine for her hypertension. Her blood pressure was uncontrolled. The blood pressure has improved. The patient is on lisinopril for hypertension as well. The patient has been started on glimepiride 4 mg for her diabetes. She is also taking aspirin daily. The patient has a large embolism of the right pulmonary artery on CAT scan. The patient will be seen by physical therapy and may need transitional care unit if she has difficulty walking. Israel Urbina MD
[2018-07-09] MEDS ORDERED: Insulin Detemir 100 units/ml Vial (Levemir) SC SCH (22:00)
--- NOTE | 2018-07-09 22:02 | CON ---
DATE: 07/09/2018 LOCATION: The patient is in room 260, bed 2. REASON FOR CONSULTATION: Thrombophlebitis, hypertension, and ST-T changes on EKG. HISTORY OF PRESENT ILLNESS: The patient is a 53-year-old female, known case of schizophrenia, was on Haldol; hypertension; admitted with of one week. She was having cramps in the left lower leg and thigh and also it became painful. She also noticed slight swelling of the leg, so she came to emergency room. Doppler study showed acute extensive left lower extremity DVT involving the left femoral vein, popliteal vein, and visualized tibial veins. The patient's EKG showed T-wave inversions and so cardiac evaluation was requested for evaluation of cardiac stasis. The patient denies any chest pain, shortness of breath, or palpitations. She has had no history of any exertional chest pain in the past. PAST MEDICAL HISTORY: Positive for schizophrenia and hypertension. FAMILY HISTORY: Not significant. PERSONAL HISTORY: The patient denies smoking. Denies drinking. ALLERGIES: THE PATIENT DENIES ANY ALLERGIES. HOME MEDICATIONS: The patient was on Haldol 10 mg p.o. b.i.d. REVIEW OF SYSTEMS: All the system reviewed positive mentioned in history, otherwise negative. PHYSICAL EXAMINATION: VITAL SIGNS: The patient's blood pressure on admission was 190/103 and today's blood pressure 136/84, respirations 19, and pulse 73. The patient is afebrile. HEENT: Head is normocephalic. Eyes, pupils normal. Conjunctivae normal. Nose and throat normal. NECK: JVP low. Carotids equal. THORAX: AP diameter normal. LUNGS: Clear. CARDIOVASCULAR: S1 and S2. ABDOMEN: Soft and nontender. No organomegaly. EXTREMITIES: No clubbing. No cyanosis. The patient has tenderness of left calf. LABORATORY DATA: WBC 5.6, hemoglobin 13.2, hematocrit 40.7, and platelet 366. Sodium 138, potassium 3.8, BUN 19, creatinine 0.8, and sugar 202. AST and ALT normal. Total protein and albumin normal. The patient's CAT scan of the chest showed large embolus in the right main pulmonary artery and segmental branches. There is mild enlargement of the right ventricle. Extremity ultrasound has mentioned before, the patient had acute extensive left lower extremity DVT involving the left femoral vein, popliteal vein, and visualized tibial veins. The patient had echocardiogram on 07/07/2017 and it showed left ventricle normal size, [id number] concentric left ventricular hypertrophy, left ventricular ejection fraction is borderline, calculated ejection fraction was around 48%. Grade 1 abnormal relaxation pattern of LV, RV systolic function mildly reduced, mild aortic regurgitation, mitral regurgitation mild, mild tricuspid regurgitation, and mild pulmonary hypertension with RVSP of 42 mmHg. DIAGNOSES: Pulmonary embolism, thrombophlebitis of the left leg, schizophrenia, hypertension, right ventricular strain pattern on echocardiogram and mild pulmonary hypertension suggested of pulmonary embolism. PLAN: Continue Eliquis 10 mg b.i.d., aspirin 81 mg daily, glimepiride 4 mg daily, Haldol 10 mg b.i.d., insulin as ordered, atorvastatin 40 daily, amlodipine 10 daily, and lisinopril 10 daily. Clinically, cardiac status at this time is stable, so we will continue present therapy with good control of blood pressure and we will follow with you. Juliane Lopez MD
[2018-07-10 01:35] VITALS: RESP 20; O2SAT 96
--- NOTE | 2018-07-10 08:06 | PN ---
DATE: 07/10/2018 SUBJECTIVE: She is comfortable in bed in no acute distress. No events overnight. Denies any chest pain. No shortness of breath. The left leg pain improved. REVIEW OF SYSTEMS: As per HPI. A 12-point review of systems reviewed negative. PHYSICAL EXAMINATION: GENERAL: Comfortable in bed, in no acute distress. VITAL SIGNS: Temperature 98.1, heart rate 105 per minute, blood pressure 143/87, respiratory rate 20 per minute and oxygen saturation 96% on oxygen by nasal cannula. HEENT: PERRLA, positive. NECK: No lymphadenopathy. CHEST: Air entry present and equal bilateral. No added sounds. CARDIOVASCULAR: S1 and S2 normal. No murmur. No gallop. ABDOMEN: Soft and nontender. No hepatosplenomegaly. EXTREMITIES: No edema. CENTRAL NERVOUS SYSTEM: Alert and oriented x3. No focal sensory or motor deficit. SPINE: Nontender. SKIN: No petechiae, no rash. LABORATORY DATA: From 07/09/2018, white count 5.6, hemoglobin 13.2, hematocrit 40.7 and platelet 366. Creatinine 0.8. Hypercoagulable workup pending. MEDICATIONS: Norvasc 10 mg daily, Eliquis 10 mg p.o. b.i.d., aspirin 81 mg daily, Lipitor 40 mg daily, Amaryl 4 mg daily, Haldol, and insulin. ASSESSMENT AND PLAN: 1. Hypercoagulable state. 2. Right mainstem pulmonary deep vein thrombosis. 3. Left leg deep vein thrombosis, femoral and tibial. 4. Schizophrenia. PLAN: She is currently on Eliquis 10 mg p.o. b.i.d. Recommend continuing for 7 days 10 mg p.o. b.i.d., then reduce the dose to 5 mg p.o. b.i.d. Discussed the major risk factor with Eliquis including the head bleed. She was advised to seek medical attention if she has fall or severe headaches. Hypercoagulable workup pending. Blood counts stable. Hemoglobin and hematocrit stable. Renal function is within normal limits. LFT is within normal limits. Thank you, Dr. Urbina, for allowing us to participate in Ms. Cotter's care. Carrol Owen MD [facility] # [id number]
[2018-07-10 08:42] LABS: CARDIOLIPIN AB (IGA) <11 APL (<=11)
--- NOTE | 2018-07-10 09:30 | DS ---
SUBJECTIVE: This is a 53-year-old female, who has been admitted to the hospital because of pulmonary embolism. The patient also has a DVT. She has been placed on anticoagulation. The patient is feeling well. She has no complaints of any headaches or dizziness. No nausea. No vomiting. The patient is going to need lifelong anticoagulation. She is waiting for evaluation by Physical Therapy for possible subacute placement. PHYSICAL EXAMINATION: VITAL SIGNS: Temperature is 98.1, pulse of 59, blood pressure 143/87, respirations 20. GENERAL: The patient is lying in bed, flat, comfortable. HEENT: No oral lesion. Anicteric sclerae. Moist mucosa. NECK: No JVD, adenopathy, or thyromegaly. CARDIOVASCULAR: S1 and S2, regular. No murmurs, rubs, or gallops. LUNGS: Clear to auscultation bilaterally. No wheeze, rales, or rhonchi. ABDOMEN: Bowel sounds are positive, soft, nontender and nondistended. EXTREMITIES: no cyanosis, clubbing or edema. ASSESSMENT: 1. Pulmonary embolism 2. Left leg deep venous thrombosis of the femoral tibial vein. 3. Diabetes type 2. 4. Hypertension. 5. Schizophrenia. PLAN: The patient is currently comfortable. She has a hypercoagulable workup that is pending. She is on Amaryl for diabetes. She is on Eliquis for her anticoagulation. The patient is on insulin for her diabetes. I will add metformin and try to keep her on oral anticoagulation. She has underlying schizophrenia. She is currently on Haldol for her schizophrenia. She is going to be on Zestril for her hypertension. CONDITION: Stable. ACTIVITIES: Increase as tolerated. Israel Urbina MD
[2018-07-10] MEDS: Insulin Reg-HIGH-Coverage SC SCH (10:05)
[2018-07-10 12:33] VITALS: BP 148/91; PULSE 60; TEMP 98
--- NOTE | 2018-07-10 13:20 | PN ---
DATE: 07/10/2018 REASON FOR CONSULTATION AND FOLLOWUP: Thrombophlebitis, hypertension, and ST-T changes on EKG. SUBJECTIVE: The patient denies any chest pain, shortness of breath, or any palpitation. OBJECTIVE: Examination as follows; GENERAL: Not in apparent distress. VITAL SIGNS: Temperature afebrile, heart rate 64, and blood pressure 143/87. HEENT: PERRLA. Extraocular muscles intact. NECK: Supple. No carotid bruits or thyromegaly. CHEST: Clear to auscultation. HEART: S1 and S2 regular. ABDOMEN: Soft. EXTREMITIES: Clubbing and cyanosis, negative. LABORATORY DATA: Blood workup; WBC 5.6, hemoglobin 13.2, hematocrit 40.7, and platelet count 366. Chemistry shows sodium 130, potassium 3.8, chloride 102, carbon dioxide 26, anion gap of 14, BUN 19, and creatinine 0.8. IMPRESSION: A 53-year-old morbidly obese female with history of schizophrenia, on Haldol and hypertension, admitted with pulmonary embolism and thrombophlebitis of the lower extremity. The patient had an abnormal EKG with ST-T changes, but no evidence of acute myocardial infarction. The troponin is 0.09 and 0.12, most likely secondary to deep vein thrombosis/pulmonary embolism. The patient also has uncontrolled hypertension. RECOMMENDATIONS: Discussed with the patient and arrangement has been made for a stress test as an outpatient in 4 to 6 weeks, and the patient was given . Also discussed with the patient to come for a stress test in 4 to 6 weeks and risk stratification. The patient agreed. We will proceed for a stress test as outpatient. Further recommendation depending upon hospital course. In the interim, continue aspirin, continue Eliquis 10 mg p.o. b.i.d., continue atorvastatin 40 mg daily, and continue amlodipine 10 mg daily. Avoid nephrotoxic medication. We suggest to discontinue telemetry. We will follow with you. Thank you Dr. Urbina for providing us the opportunity in taking care of the patient, Jill Cotter. Juliane Weems MD
== END 2018-07-10 14:34 | disposition home or self-care (01) | DRG 299 ==
LOC: ED 18:11 → MERGE 21:36 → ERH 21:36 → ICU 23:27 → 2RNO 07-08 15:26
PROVIDERS: ADMIT Internal Medicine Nephrology; ATTEND Internal Medicine Nephrology
PROC: 3E033GC Introduction of Other Therapeutic Substance into Peripheral Vein, Percutaneous Approach (ICD-10-PCS; principal; 2018-07-06)
DX: I82.432 Acute embolism and thrombosis of left popliteal vein (principal); I26.99 Other pulmonary embolism without acute cor pulmonale; D68.59 Other primary thrombophilia; G25.9 Extrapyramidal and movement disorder, unspecified; I82.412 Acute embolism and thrombosis of left femoral vein; I10 Essential (primary) hypertension; J43.9 Emphysema, unspecified; E11.9 Type 2 diabetes mellitus without complications; I27.20 Pulmonary hypertension, unspecified; F20.9 Schizophrenia, unspecified; E87.6 Hypokalemia; E78.5 Hyperlipidemia, unspecified; E66.01 Morbid (severe) obesity due to excess calories; Z91.14 Patient's other noncompliance with medication regimen; Z79.4 Long term (current) use of insulin; Z86.718 Personal history of other venous thrombosis and embolism; Z68.34 Body mass index [BMI] 34.0-34.9, adult